=== PATIENT | male | born 1940 | race Caucasian/White ===

== ENCOUNTER 2020-02-18 15:11 | Emergency (ER) | payer OTHER ==
[2020-02-18] MEDS ORDERED: ASPIRIN 81 MG CHEWABLE TABLET ONE (15:48)
[2020-02-18 15:56] LABS: Absolute Lymphocytes (CBC) 1.5 K/uL (0.7-4.9); Basophils % 0.6 % (0-1.3); Hematocrit 41.7 % (39.6-49.0); MPV 9.2 fL (7.6-11.3); RBC Red Blood Cell Count 4.43 M/uL (4.33-5.43)
[2020-02-18 15:57] LABS: Protime INR 1.23
[2020-02-18 16:18] LABS: ALT/SGPT 24 U/L (12-78); AST/SGOT 19 U/L (15-37); Albumin 3.8 g/dL (3.4-5.0); Alkaline Phosphatase 86 U/L (45-117); BUN Blood Urea Nitrogen 16 mg/dL (7-18); Bicarbonate 24 mmol/L (21-32); Bilirubin Direct 0.2 mg/dL (0-0.2); Bilirubin Total 0.7 mg/dL (0.2-1.0); Glucose Level 152 mg/dL (74-106); Potassium 4.2 mmol/L (3.5-5.1); Protein, Total 7.2 g/dL (6.4-8.2); Sodium Level 139 mmol/L (136-145); Troponin (Emerg Dept Use Only) < 0.02 ng/mL (0.0-0.045)
--- NOTE | 2020-02-18 16:38 | ER ---
Nurse's Notes [facility] Name: Antonio Castillo Jr Age: 79 yrs Sex: Male : 1940 Arrival Date: 02/18/2020 Time: 15:12 Bed 4 Private MD: Abdiel Barrett V Diagnosis: Hypertensive heart disease Presentation: 02/17 15:16 Chief complaint: Patient states: "We got into a huge argument today, and with my BP ca1 just shoots up and I got excited so I took Alprazolam 2 hrs ago. But I have A-fib and I just want to make sure that everything is okay. I am not having any pains right now and I have no numbness. But from time to time I feel a little pain on the upper L side of my chest". Coronavirus screen: Proceed with normal triage. Patient denies a cough. Patient denies shortness of breath or difficulty breathing. Patient denies measured and/or subjective temperature greater than 100.4F prior to today's visit. Patient denies travel on a cruise ship or to a country the [facility] currently lists as an affected area. Patient denies contact with known and/or suspected case of COVID-19. Ebola Screen: Patient negative for fever greater than or equal to 101.5 degrees Fahrenheit, and additional compatible Ebola Virus Disease symptoms Patient denies exposure to infectious person. Patient denies travel to an Ebola-affected area in the 21 days before illness onset. No symptoms or risks identified at this time. Initial Sepsis Screen: Does the patient meet any 2 criteria? No. Patient's initial sepsis screen is negative. Does the patient have a suspected source of infection? No. Patient's initial sepsis screen is negative. Risk Assessment: Do you want to hurt yourself or someone else? Patient reports no desire to harm self or others. Onset of symptoms was February 18, 2020. 15:16 Method Of Arrival: Ambulatory ca1 15:16 Acuity: KULWINDER 3 ca1 Historical: - Allergies: 15:22 No Known Allergies; ca1 - Home Meds: 15:22 alprazolam 0.5 mg Oral tab 1 tab as needed [Active]; olmesartan 20 mg daily Oral ca1 [Active]; sotalol 120 mg Oral tab 1 tab 2 times per day [Active]; olmesartan oral 20 mg oral [Active]; meclizine 25 mg Oral tab as needed [Active]; prednisone 10 mg Oral tab as needed [Active]; Nexium Oral as needed [Active]; tumeric [Active]; Cholest Off Plus oral oral [Active]; Xarelto 20 mg Oral tab 1 tab once daily [Active]; Claritin Oral [Active]; - PMHx: 15:22 Atrial Fib; Hypertension; sebaceous cyst removal; cardioversion; ca1 - PSHx: 15:22 Ablation-Jun, 2007; Lithotripsy; Tonsillectomy; ca1 - Immunization history:: Adult Immunizations up to date, Pneumococcal vaccine is up to date, Flu vaccine is up to date. - Social history:: Smoking status: Patient denies any tobacco usage or history of. Screenin:30 Abuse screen: Denies threats or abuse. Nutritional screening: No deficits noted. aa5 Tuberculosis screening: No symptoms or risk factors identified. Fall Risk None identified. Assessment: 15:30 General: Appears comfortable, Behavior is calm, cooperative. Pain: Denies pain. Neuro: aa5 Level of Consciousness is awake, alert, obeys commands, Oriented to person, place, time, situation. Cardiovascular: Heart tones S1 S2 present Rhythm is sinus rhythm. Respiratory: Airway is patent Respiratory effort is even, unlabored, Respiratory pattern is regular, symmetrical. GI: Abdomen is round non-distended, Abd is soft and non tender X 4 quads. : No signs and/or symptoms were reported regarding the genitourinary system. EENT: No signs and/or symptoms were reported regarding the EENT system. Derm: Skin is pink, warm \\T\\ dry. Musculoskeletal: Range of motion: intact in all extremities. 15:48 Reassessment: Patient is alert, oriented x 3, equal unlabored respirations, skin aa5 warm/dry/pink. Pt notified of wait time for lab results. . 16:16 Reassessment: Patient appears in no apparent distress at this time. Patient and/or iw family updated on plan of care and expected duration. Pain level reassessed. Patient is alert, oriented x 3, equal unlabored respirations, skin warm/dry/pink. Patient states feeling better. Patient states symptoms have improved. 16:40 Reassessment: Patient is alert, oriented x 3, equal unlabored respirations, skin aa5 warm/dry/pink. Vital Signs: 15:16 BP 147 / 96; Pulse 85; Resp 15 S; Temp 97.2(TE); Pulse Ox 100% on R/A; Weight 97.52 kg ca1 (R); Height 6 ft. 0 in. (182.88 cm) (R); Pain 0/10; 15:48 BP 156 / 78; Pulse 81; Resp 14 S; Pulse Ox 100% on R/A; aa5 16:16 BP 143 / 75; Pulse 64; Resp 16; Pulse Ox 98% on R/A; iw 16:40 BP 156 / 82; Pulse 72; Resp 18 S; Pulse Ox 98% on R/A; aa5 15:16 Body Mass Index 29.16 (97.52 kg, 182.88 cm) ca1 ED Course: 15:12 Patient arrived in ED. as 15:12 Abdiel Barrett MD is Private Physician. as 15:20 Triage completed. ca1 15:22 Arm band placed on right wrist. ca1 15:24 Franky Carpenter PA is PHCP. cp 15:24 Nery Rodriguez MD is Attending Physician. cp 15:25 Leydi Holguin, JARAD is Primary Nurse. aa5 15:30 Patient has correct armband on for positive identification. Bed in low position. Call aa5 light in reach. Side rails up X2. teletypesetter monitor on. Pulse ox on. NIBP on. 15:44 Initial lab(s) drawn, by ED staff, sent to lab. Inserted saline lock: 20 gauge in right aa5 antecubital area, using aseptic technique. Blood collected. Inserted by GILMAR Mccollum. 15:46 EKG done, by ED staff, reviewed by Nery Rodriguez MD. aa5 16:50 No provider procedures requiring assistance completed. IV discontinued, intact, aa5 bleeding controlled, No redness/swelling at site. Pressure dressing applied. Administered Medications: 15:43 Drug: Aspirin Chewable Tablet 81 mg Route: PO; aa5 16:50 Follow up: Response: No adverse reaction aa5 Outcome: 16:37 Discharge ordered by . cp 16:53 Discharged to home ambulatory. aa5 16:53 Condition: stable 16:53 Discharge instructions given to patient, Instructed on discharge instructions, follow up and referral plans. Demonstrated understanding of instructions, follow-up care. 16:56 Patient left the ED. iw Signatures: Mercedes Mir Irene, RN RN Leydi Downey, RN RN aa5 Franky Carpenter PA PA cp Acob, Cheryl RN RN ca1
--- NOTE | 2020-02-18 16:38 | EDPHYS ---
Physician Documentation [facility] Name: Antonio Castillo Jr Age: 79 yrs Sex: Male : 1940 Arrival Date: 02/18/2020 Time: 15:12 Bed 4 Private MD: Abdiel Barrett V ED Physician Nery Rodriguez HPI: 02/17 15:30 This 79 yrs old Male presents to ER via Ambulatory with complaints of High cp Blood Pressure. 15:30 The patient has elevated blood pressure and discovered this at home, with a home device.cp 15:30 Onset: The symptoms/episode began/occurred this morning. cp 15:30 Associated signs and symptoms: Pertinent negatives: headache, lightheadedness, visual cp changes, vomiting, weakness. Severity of symptoms: At its worst the blood pressure was 200 mm Hg, in the emergency department the blood pressure is improved, markedly. Patient reports noticing elevated blood pressure reading this morning. Admits that elevated readings were measured after being involved in argument with and daughter. Patient reports mild chest discomfort this morning left side of chest. Denies any current pain. Historical: - Allergies: 15:22 No Known Allergies; ca1 - Home Meds: 15:22 alprazolam 0.5 mg Oral tab 1 tab as needed [Active]; olmesartan 20 mg daily Oral ca1 [Active]; sotalol 120 mg Oral tab 1 tab 2 times per day [Active]; olmesartan oral 20 mg oral [Active]; meclizine 25 mg Oral tab as needed [Active]; prednisone 10 mg Oral tab as needed [Active]; Nexium Oral as needed [Active]; tumeric [Active]; Cholest Off Plus oral oral [Active]; Xarelto 20 mg Oral tab 1 tab once daily [Active]; Claritin Oral [Active]; - PMHx: 15:22 Atrial Fib; Hypertension; sebaceous cyst removal; cardioversion; ca1 - PSHx: 15:22 Ablation-Jun, 2007; Lithotripsy; Tonsillectomy; ca1 - Immunization history:: Adult Immunizations up to date, Pneumococcal vaccine is up to date, Flu vaccine is up to date. - Social history:: Smoking status: Patient denies any tobacco usage or history of. ROS: 15:33 Eyes: Negative for injury, pain, redness, and discharge. cp 15:33 Constitutional: Negative for body aches, chills, fever, poor PO intake. 15:33 ENT: Negative for ear pain, sore throat, difficulty swallowing, difficulty handling secretions. 15:33 Cardiovascular: Negative for chest pain, edema, palpitations. 15:33 Respiratory: Negative for cough, shortness of breath, wheezing. 15:33 Abdomen/GI: Negative for abdominal pain, nausea, vomiting, and diarrhea. 15:33 Back: Negative for pain at rest, pain with movement, radiated pain. 15:33 Skin: Negative for rash. 15:33 Neuro: Negative for altered mental status, dizziness, headache, syncope, weakness. 15:33 All other systems are negative. Exam: 15:36 Head/Face: Normocephalic, atraumatic. cp 15:36 Constitutional: The patient appears in no acute distress, alert, awake, comfortable, non-diaphoretic, non-toxic, well developed, well nourished. 15:36 Eyes: Periorbital structures: appear normal, Conjunctiva: normal, no exudate, no injection, Sclera: no appreciated abnormality, Lids and lashes: appear normal, bilaterally. 15:36 ENT: External ear(s): are unremarkable, Nose: is normal, Mouth: is normal, Posterior pharynx: Airway: no evidence of obstruction, patent. 15:36 Neck: ROM/movement: is normal, is supple, without pain, no range of motions limitations, no nuchal rigidity. 15:36 Chest/axilla: Inspection: normal, Palpation: is normal, no crepitus, no tenderness. 15:36 Cardiovascular: Rate: normal, Edema: is not appreciated, JVD: is not appreciated. 15:36 Respiratory: the patient does not display signs of respiratory distress, Respirations: normal, no use of accessory muscles, no retractions, labored breathing, is not present, Breath sounds: are clear throughout, no decreased breath sounds, no stridor, no wheezing. 15:36 Abdomen/GI: Inspection: abdomen appears normal, Bowel sounds: active, all quadrants, Palpation: abdomen is soft and non-tender, in all quadrants, rebound tenderness, is not appreciated, voluntary guarding, is not appreciated, involuntary guarding, is not appreciated. 15:36 Back: pain, is absent, ROM is normal. 15:59 ECG was reviewed by the Attending Physician. cp Vital Signs: 15:16 BP 147 / 96; Pulse 85; Resp 15 S; Temp 97.2(TE); Pulse Ox 100% on R/A; Weight 97.52 kg ca1 (R); Height 6 ft. 0 in. (182.88 cm) (R); Pain 0/10; 15:48 BP 156 / 78; Pulse 81; Resp 14 S; Pulse Ox 100% on R/A; aa5 16:16 BP 143 / 75; Pulse 64; Resp 16; Pulse Ox 98% on R/A; iw 16:40 BP 156 / 82; Pulse 72; Resp 18 S; Pulse Ox 98% on R/A; aa5 15:16 Body Mass Index 29.16 (97.52 kg, 182.88 cm) ca1 MDM: 15:32 Patient medically screened. cp 16:00 Differential diagnosis: hypertensive crisis, Malignant HTN, acute SD. cp 16:35 Data reviewed: vital signs, nurses notes, lab test result(s), EKG, radiologic studies, cp and as a result, I will discharge patient. 16:35 Test interpretation: by ED physician or midlevel provider: ECG. cp 16:35 Counseling: I had a detailed discussion with the patient and/or guardian regarding: the cp historical points, exam findings, and any diagnostic results supporting the discharge/admit diagnosis, the presence of at least one elevated blood pressure reading (>120/80) during this emergency department visit, lab results, the need for outpatient follow up, an hospital pharmacy director, to return to the emergency department if symptoms worsen or persist or if there are any questions or concerns that arise at home. Response to treatment: the patient's symptoms have markedly improved after treatment, and as a result, I will discharge patient. 02/17 15:32 Order name: Basic Metabolic Panel; Complete Time: 16:21 cp 02/17 16:21 Interpretation: Normal except: GLUC 152; GFR 80. cp 02/17 15:32 Order name: CBC with Diff; Complete Time: 16:18 cp 02/17 16:21 Interpretation: Reviewed. 02/17 15:32 Order name: LFT's; Complete Time: 16:21 cp 02/17 16:21 Interpretation: Reviewed. 02/17 15:32 Order name: PT-INR; Complete Time: 16:18 02/17 16:18 Interpretation: Reviewed. 02/17 15:32 Order name: Troponin (emerg Dept Use Only); Complete Time: 16:21 02/17 16:21 Interpretation: Reviewed. 02/17 15:32 Order name: EKG; Complete Time: 15:33 02/17 15:32 Order name: Cardiac monitoring; Complete Time: 15:54 02/17 15:32 Order name: EKG - Nurse/Tech; Complete Time: 15:54 02/17 15:32 Order name: IV Saline Lock; Complete Time: 15:54 02/17 15:32 Order name: Labs collected and sent; Complete Time: 15:54 02/17 15:32 Order name: O2 Per Protocol; Complete Time: 15:54 02/17 15:32 Order name: O2 Sat Monitoring; Complete Time: 15:54 cp EC:59 Rate is 77 beats/min. Rhythm is regular. DE interval is normal. QRS interval is normal. cp QT interval is normal. T waves are Inverted in lead III. Interpreted by me. Reviewed by me. Administered Medications: 15:43 Drug: Aspirin Chewable Tablet 81 mg Route: PO; aa5 16:50 Follow up: Response: No adverse reaction aa5 Disposition: 18:47 Co-signature as Attending Physician, Nery Rodriguez MD. ma2 Disposition: 02/18/20 16:37 Discharged to Home. Impression: Hypertensive heart disease. - Condition is Stable. - Discharge Instructions: Hypertension, How to Take Your Blood Pressure, Rioh-dr-Pcoh, Managing Your Hypertension. - Medication Reconciliation Form, Thank You Letter, Antibiotic Education, Prescription Opioid Use form. - Follow up: Private Physician; When: 2 - 3 days; Reason: Worsening of condition. - Problem is chronic. - Symptoms have improved. Signatures: Dispatcher [employer] Alexa De La O RN RN iw Leydi Holguin RN RN aa5 Franky Carpenter PA PA cp Alzahri, Mohammad, MD MD ma2 Samantha Buck RN RN ca1 Corrections: (The following items were deleted from the chart) 16:56 16:37 02/18/2020 16:37 Discharged to Home. Impression: Hypertensive heart disease. iw Condition is Stable. Forms are Medication Reconciliation Form, Thank You Letter, Antibiotic Education, Prescription Opioid Use. Follow up: Private Physician; When: 2 - 3 days; Reason: Worsening of condition. Problem is chronic. Symptoms have improved. cp
[2020-02-18 17:02] VITALS: TEMP 97.2
[2020-02-18 17:04] VITALS: BP 143/75; O2SAT 98
== END 2020-02-18 16:56 | disposition home or self-care (01) ==
LOC: ER 15:11
DX: I11.9 Hypertensive heart disease without heart failure (principal)
CPT/HCPCS: 36415; 80048; 80076; 84484; 85025; 85610; 93005; 99284

== ENCOUNTER 2020-06-11 02:26 | Emergency (ER) | payer OTHER ==
[2020-06-11] MEDS ORDERED: FAMOTIDINE 20 MG/2 ML VIAL IV ONE (03:39)
[2020-06-11] MEDS ORDERED: MORPHINE 4 MG/ML SYR ONE (03:39)
[2020-06-11] MEDS ORDERED: ONDANSETRON 4 MG/2 ML VIAL ONE (03:39)
[2020-06-11 03:40] LABS: Absolute Lymphocytes (CBC) 1.6 K/uL (0.7-4.9); Basophils % 0.6 % (0-1.3); Hematocrit 41.5 % (39.6-49.0); Lymphocytes % 30.2 % (15.3-44.8); RBC Red Blood Cell Count 4.38 M/uL (4.33-5.43)
[2020-06-11 04:01] LABS: ALT/SGPT 26 U/L (12-78); AST/SGOT 14 U/L (15-37); Albumin 3.7 g/dL (3.4-5.0); Alkaline Phosphatase 84 U/L (45-117); BUN Blood Urea Nitrogen 13 mg/dL (7-18); Bicarbonate 29 mmol/L (21-32); Bilirubin Direct 0.2 mg/dL (0-0.2); Bilirubin Total 0.7 mg/dL (0.2-1.0); Glucose Level 112 mg/dL (74-106); Lipase 98 U/L (73-393); Potassium 3.9 mmol/L (3.5-5.1); Protein, Total 7.2 g/dL (6.4-8.2); Sodium Level 143 mmol/L (136-145); Troponin (Emerg Dept Use Only) < 0.02 ng/mL (0.0-0.045)
[2020-06-11 04:17] LABS: Protime INR 1.73
[2020-06-11] MEDS ORDERED: LORazepam 2 MG/ML VIAL ONE (04:18)
--- NOTE | 2020-06-11 07:48 | RAD REPORT ---
EXAM DESCRIPTION: CTAbdomen Pelvis W Contrast - 06/11/2020 6:53 am CLINICAL HISTORY: Abdominal pain. ABD PAIN COMPARISON: No comparisons TECHNIQUE: Biphasic CT imaging of the abdomen and pelvis was performed with 100 ml non-ionic IV cont rast. All CT scans are performed using dose optimization technique as appropriate and may include automated exposure control or mA/KV adjustment according to patient size. FINDINGS: The lung bases are clear. The liver, spleen, pancreas, adrenal glands and kidneys are within normal limits. 3 cm benign right r enal cyst. No bowel obstruction, free air, free fluid or abscess. Moderate retained stool throughout the colon. Several sigmoid diverticula are present. The appendix is normal. Small fat containing umbilical herni a. No evidence of significant lymphadenopathy. Moderate lumbar degenerative changes. IMPRESSION: Moderate retained stool throughout the colon.
--- NOTE | 2020-06-11 08:05 | EDPHYS ---
Physician Documentation [facility] Name: Antonio Castillo Jr Age: 79 yrs Sex: Male : 1940 Arrival Date: 06/11/2020 Time: 02:30 Bed 6 Private MD: ED Physician Franky Martinez HPI: 06/11 03:59 This 79 yrs old Male presents to ER via Ambulatory with complaints of Gastric mh7 Problems, Abdominal Pain. 03:59 The patient presents with abdominal pain in the upper abdomen. Onset: The mh7 symptoms/episode began/occurred last night. The symptoms do not radiate. 03:59 Associated signs and symptoms: Pertinent positives: shortness of breath, Pertinent mh7 negatives: nausea, vomiting, and diarrhea, anorexia, blood in stools, chest pain, constipation, diarrhea, dysuria, fever, headache, hematuria, nausea, palpitations, testicular pain, vomiting, vomiting blood. The symptoms are described as intermittent, vague, waxing/waning. Modifying factors: The symptoms are alleviated by nothing, the symptoms are aggravated by nothing. Severity of pain: At its worst the pain was moderate today, in the emergency department the pain has improved moderately. The patient has experienced similar episodes in the past, multiple times. Historical: - Allergies: 02:56 No Known Allergies; lp1 - Home Meds: 02:56 olmesartan 20 mg Oral once daily [Active]; Xarelto 20 mg Oral tab 1 tab once daily lp1 [Active]; sotalol 120 mg Oral tab 1 tab 2 times per day [Active]; tamsulosin 0.4 mg oral cp24 1 cap once daily [Active]; finasteride 5 mg oral tab 1 tab once daily [Active]; esomeprazole magnesium 40 mg oral cpDR 1 cap once daily [Active]; alprazolam 0.5 mg Oral tab 1 tab as needed [Active]; meclizine 25 mg Oral tab as needed [Active]; prednisone 10 mg Oral tab as needed [Active]; - PMHx: 02:56 Atrial Fib; cardioversion; Hypertension; sebaceous cyst removal; lp1 - PSHx: 02:56 Cardiac ablasion; Tonsillectomy; lp1 - Immunization history:: Adult Immunizations up to date. - Social history:: Smoking status: Patient denies any tobacco usage or history of. ROS: 03:59 Constitutional: Negative for fever, chills, and weight loss, Eyes: Negative for injury, mh7 pain, redness, and discharge, ENT: Negative for injury, pain, and discharge, Neck: Negative for injury, pain, and swelling, Cardiovascular: Negative for chest pain, palpitations, and edema, Back: Negative for injury and pain, : Negative for injury, bleeding, discharge, and swelling, MS/Extremity: Negative for injury and deformity, Skin: Negative for injury, rash, and discoloration, Neuro: Negative for headache, weakness, numbness, tingling, and seizure, Psych: Negative for depression, anxiety, suicide ideation, homicidal ideation, and hallucinations, Allergy/Immunology: Negative for hives, rash, and allergies, Endocrine: Negative for neck swelling, polydipsia, polyuria, polyphagia, and marked weight changes, Hematologic/Lymphatic: Negative for swollen nodes, abnormal bleeding, and unusual bruising. Exam: 03:59 Head/Face: Normocephalic, atraumatic. Eyes: Pupils equal round and reactive to light, mh7 extra-ocular motions intact. Lids and lashes normal. Conjunctiva and sclera are non-icteric and not injected. Cornea within normal limits. Periorbital areas with no swelling, redness, or edema. Neck: Trachea midline, no thyromegaly or masses palpated, and no cervical lymphadenopathy. Supple, full range of motion without nuchal rigidity, or vertebral point tenderness. No Meningismus. Chest/axilla: Normal chest wall appearance and motion. Nontender with no deformity. No lesions are appreciated. Cardiovascular: Regular rate and rhythm with a normal S1 and S2. No gallops, murmurs, or rubs. Normal PMI, no JVD. No pulse deficits. Respiratory: Lungs have equal breath sounds bilaterally, clear to auscultation and percussion. No rales, rhonchi or wheezes noted. No increased work of breathing, no retractions or nasal flaring. 03:59 Back: No spinal tenderness. No costovertebral tenderness. Full range of motion. Skin: Warm, dry with normal turgor. Normal color with no rashes, no lesions, and no evidence of cellulitis. MS/ Extremity: Pulses equal, no cyanosis. Neurovascular intact. Full, normal range of motion. Neuro: Awake and alert, GCS 15, oriented to person, place, time, and situation. Cranial nerves II-XII grossly intact. Motor strength 5/5 in all extremities. Sensory grossly intact. Cerebellar exam normal. Normal gait. Psych: Awake, alert, with orientation to person, place and time. Behavior, mood, and affect are within normal limits. 03:59 Constitutional: The patient appears in no acute distress, alert, awake, uncomfortable. 03:59 Abdomen/GI: Inspection: abdomen appears normal, obese Bowel sounds: normal, in all quadrants, Palpation: moderate abdominal tenderness, in the epigastric area and umbilical area, Rectal exam: the exam is deferred, because of patient request, Indicators: McBurney's point is not tender, Kwon's sign is negative, Rovsing's sign is negative, Obturator sign is negative, Psoas sign is negative, Liver: no appreciated palpable abnormalities, Hernia: not appreciated. 06:00 ECG was reviewed by the Attending Physician. [facility] Vital Signs: 02:49 BP 181 / 75; Pulse 61; Resp 18; Temp 98.6(TE); Pulse Ox 100% on R/A; Weight 96.62 kg lp1 (R); Height 6 ft. 0 in. (182.88 cm); Pain 0/10; 04:37 BP 137 / 70; Pulse 58; Resp 15; Pulse Ox 96% on R/A; rv 06:00 BP 132 / 61; Pulse 60; Resp 16; Pulse Ox 98% ; rr5 07:05 BP 152 / 70; Pulse 60; Resp 17; Pulse Ox 99% ; jl7 08:20 BP 150 / 67; Pulse 58; Resp 17; Pulse Ox 100% ; jl7 02:49 Body Mass Index 28.89 (96.62 kg, 182.88 cm) lp1 MDM: 03:08 Patient medically screened. [facility] 08:03 Differential diagnosis: AAA, bowel obstruction, diverticulitis, gastritis, Hepatitis, charmaine non-specific abd pain, Peptic Ulcer Disease, Peritonitis. Data reviewed: vital signs, nurses notes, lab test result(s), EKG, radiologic studies, CT scan. Data interpreted: bus driver/monitor: rate is 60 beats/min, rhythm is regular, Pulse oximetry: on room air is 99 %. Test interpretation: by ED physician or midlevel provider: ECG. Counseling: I had a detailed discussion with the patient and/or guardian regarding: the historical points, exam findings, and any diagnostic results supporting the discharge/admit diagnosis, lab results, radiology results, the need for outpatient follow up, for definitive care, a branch banker, an deputy sheriff. 06/11 03:10 Order name: Basic Metabolic Panel; Complete Time: 04:40 mh7 06/11 03:10 Order name: CBC with Diff; Complete Time: 03:51 mh7 06/11 03:10 Order name: Hepatic Function; Complete Time: 04:40 mh7 06/11 03:10 Order name: Lipase; Complete Time: 04:40 mh7 06/11 03:10 Order name: Troponin (emerg Dept Use Only); Complete Time: 04:40 mh7 06/11 03:52 Order name: Protime (+inr); Complete Time: 04:40 mh7 06/11 03:52 Order name: Ptt, Activated; Complete Time: 04:40 mh7 06/11 03:55 Order name: PROBNP; Complete Time: 04:40 mh7 06/11 03:58 Order name: Chest Single View XRAY 06/11 04:42 Order name: CT Abd/Pelvis - PO and IV Contrast; Complete Time: 08:02 mh7 06/11 03:10 Order name: IV Saline Lock; Complete Time: 03:30 mh7 06/11 03:10 Order name: Labs collected and sent; Complete Time: 03:43 mh7 06/11 03:10 Order name: EKG - Nurse/Tech; Complete Time: 03:30 mh7 06/11 03:10 Order name: Urine Dipstick-Ancillary (obtain specimen); Complete Time: 03:30 mh7 EC:00 Rate is 59 beats/min. Rhythm is regular, Sinus bradycardia. QRS Blossom is Normal. AR mh7 interval is normal. QRS interval is normal. QT interval is normal. No Q waves. T waves are Normal. No ST changes noted. Clinical impression: Sinus bradycardia. Administered Medications: 03:31 Drug: Zofran (Ondansetron) 4 mg Route: IVP; Site: right antecubital; rv 04:30 Follow up: Response: No adverse reaction rr5 03:31 Drug: Pepcid 20 mg Route: IVP; Site: right antecubital; rv 04:30 Follow up: Response: No adverse reaction rr5 04:08 Not Given (Patient Refused): morphine 4 mg IVP once; RASS on ADMIN: Combtv4, Very rv Agttd3, Agttd2, Rstlss1, AlertClm0, Drwsy-1, Lt Sdtn-2, Mod Sdtn-3, Dp Sdtn-4, UnArsble-5 04:09 Drug: Ativan 0.5 mg Route: IVP; Site: right antecubital; rv 05:00 Follow up: Response: No adverse reaction; Marked relief of symptoms rr5 08:15 Drug: Lactulose 30 grams Volume: 45 ml; Route: PO; jl7 08:31 Follow up: Response: Medication administered at discharge. jl7 Disposition: 06/11/20 08:05 Discharged to Home. Impression: Abdominal tenderness, Constipation. - Condition is Stable. - Discharge Instructions: Abdominal Pain, Adult, Constipation, Adult, Abdominal Pain, Adult, Boij-uv-Zlno. - Prescriptions for Bentyl 20 mg Oral Tablet - take 1 tablet by ORAL route every 6 hours As needed; 20 tablet. Dulcolax 10 mg Rectal Suppository - insert 1 suppository by RECTAL route every 12 hours As needed; 10 suppository. Miralax 17 gram/dose Oral - take 1 packet by ORAL route once daily dilute powder in 8 ounces of water or juice; 14 packet. Protonix 40 mg Oral Tablet, Delayed Release (E.C.) - take 1 tablet by ORAL route once daily; 14 tablet. - Medication Reconciliation Form, Thank You Letter, Antibiotic Education, Prescription Opioid Use form. - Follow up: Private Physician; When: 2 - 3 days; Reason: Recheck today's complaints, Continuance of care, Re-evaluation by your physician. Follow up: Ángel Reddy MD; When: 2 - 3 days; Reason: Recheck today's complaints, Re-evaluation by your physician. Follow up: Antonio Mendez MD; When: 2 - 3 days; Reason: Recheck today's complaints, Re-evaluation by your physician. Follow up: Sandor Gan MD; When: 2 - 3 days; Reason: Recheck today's complaints, Continuance of care, Re-evaluation by your physician. - Problem is new. - Symptoms have improved. Signatures: Dispatcher [employer] EDMS Franky Martinez MD MD cha Pena, Laura RN RN lp1 Liliana Hugo RN RN jl7 Georgi Tate, JARAD RN Isma Patricia MD MD 7 Dejon Duran RN rr5 Corrections: (The following items were deleted from the chart) 08:21 08:05 06/11/2020 08:05 Discharged to Home. Impression: Abdominal tenderness; charmaine Constipation. Condition is Stable. Forms are Medication Reconciliation Form, Thank You Letter, Antibiotic Education, Prescription Opioid Use. Follow up: Private Physician; When: 2 - 3 days; Reason: Recheck today's complaints, Continuance of care, Re-evaluation by your physician. Follow up: Ángel Reddy; When: 2 - 3 days; Reason: Recheck today's complaints, Re-evaluation by your physician. Problem is new. Symptoms have improved. charmaine 08:33 08:21 06/11/2020 08:05 Discharged to Home. Impression: Abdominal tenderness; jl7 Constipation. Condition is Stable. Discharge Instructions: Abdominal Pain, Adult, Constipation, Adult, Abdominal Pain, Adult, Kqon-gj-Ddvd. Prescriptions for Bentyl 20 mg Oral Tablet - take 1 tablet by ORAL route every 6 hours As needed; 20 tablet, Dulcolax 10 mg Rectal Suppository - insert 1 suppository by RECTAL route every 12 hours As needed; 10 suppository, Miralax 17 gram/dose Oral - take 1 packet by ORAL route once daily dilute powder in 8 ounces of water or juice; 14 packet, Protonix 40 mg Oral Tablet, Delayed Release (E.C.) - take 1 tablet by ORAL route once daily; 14 tablet. and Forms are Medication Reconciliation Form, Thank You Letter, Antibiotic Education, Prescription Opioid Use. Follow up: Private Physician; When: 2 - 3 days; Reason: Recheck today's complaints, Continuance of care, Re-evaluation by your physician. Follow up: Antonio Mendez; When: 2 - 3 days; Reason: Recheck today's complaints, Re-evaluation by your physician. Follow up: Sandor Gan; When: 2 - 3 days; Reason: Recheck today's complaints, Continuance of care, Re-evaluation by your physician. Problem is new. Symptoms have improved. charmaine
--- NOTE | 2020-06-11 08:05 | ER ---
Nurse's Notes [facility] Name: Antonio Castillo Jr Age: 79 yrs Sex: Male : 1940 Arrival Date: 06/11/2020 Time: 02:30 Bed 6 Private MD: Diagnosis: Abdominal tenderness;Constipation Presentation: 06/11 02:49 Chief complaint: Patient states: Abdominal pressure that began at 0140 this morning; lp1 ongoing abdominal issues since September, seeing GI specialist; States feeling like short of breath with abdominal pressure; denies diarrhea, constipation. Coronavirus screen: Client denies travel out of the [place] in the last 14 days. At this time, the client does not indicate any symptoms associated with coronavirus-19. Ebola Screen: No symptoms or risks identified at this time. Initial Sepsis Screen: Does the patient meet any 2 criteria? No. Patient's initial sepsis screen is negative. Does the patient have a suspected source of infection? No. Patient's initial sepsis screen is negative. Risk Assessment: Do you want to hurt yourself or someone else? Patient reports no desire to harm self or others. Onset of symptoms was June 11, 2020 at 01:40. 02:49 Method Of Arrival: Ambulatory lp1 02:49 Acuity: KULWINDER 3 lp1 Historical: - Allergies: 02:56 No Known Allergies; lp1 - Home Meds: 02:56 olmesartan 20 mg Oral once daily [Active]; Xarelto 20 mg Oral tab 1 tab once daily lp1 [Active]; sotalol 120 mg Oral tab 1 tab 2 times per day [Active]; tamsulosin 0.4 mg oral cp24 1 cap once daily [Active]; finasteride 5 mg oral tab 1 tab once daily [Active]; esomeprazole magnesium 40 mg oral cpDR 1 cap once daily [Active]; alprazolam 0.5 mg Oral tab 1 tab as needed [Active]; meclizine 25 mg Oral tab as needed [Active]; prednisone 10 mg Oral tab as needed [Active]; - PMHx: 02:56 Atrial Fib; cardioversion; Hypertension; sebaceous cyst removal; lp1 - PSHx: 02:56 Cardiac ablasion; Tonsillectomy; lp1 - Immunization history:: Adult Immunizations up to date. - Social history:: Smoking status: Patient denies any tobacco usage or history of. Screenin:56 Abuse screen: Denies threats or abuse. Denies injuries from another. Nutritional lp1 screening: No deficits noted. Tuberculosis screening: No symptoms or risk factors identified. Fall Risk None identified. Assessment: 03:32 General: Appears comfortable, Behavior is calm, cooperative. Pain: Complains of pain in rv epigastric area Pain currently is 2 out of 10 on a pain scale. Neuro: Level of Consciousness is awake, alert, obeys commands, Oriented to person, place, time, situation. Cardiovascular: Patient's skin is warm and dry. Respiratory: Airway is patent Respiratory effort is even, unlabored, Breath sounds are clear bilaterally. GI: Bowel sounds present X 4 quads. Abd is soft and non tender X 4 quads. Reports bloating. Derm: Skin is intact. 04:54 Reassessment: oral contrast consumed CT staff informed. rr5 06:00 Reassessment: Patient appears in no apparent distress at this time. Patient is alert, rr5 oriented x 3, equal unlabored respirations, skin warm/dry/pink. awaiting for CT procedure. 06:31 Reassessment: Patient appears in no apparent distress at this time. Patient is alert, rr5 oriented x 3, equal unlabored respirations, skin warm/dry/pink. send for CT procedure assisted by CT staff. Vital Signs: 02:49 BP 181 / 75; Pulse 61; Resp 18; Temp 98.6(TE); Pulse Ox 100% on R/A; Weight 96.62 kg lp1 (R); Height 6 ft. 0 in. (182.88 cm); Pain 0/10; 04:37 BP 137 / 70; Pulse 58; Resp 15; Pulse Ox 96% on R/A; rv 06:00 BP 132 / 61; Pulse 60; Resp 16; Pulse Ox 98% ; rr5 07:05 BP 152 / 70; Pulse 60; Resp 17; Pulse Ox 99% ; jl7 08:20 BP 150 / 67; Pulse 58; Resp 17; Pulse Ox 100% ; jl7 02:49 Body Mass Index 28.89 (96.62 kg, 182.88 cm) lp1 ED Course: 02:30 Patient arrived in ED. bp1 02:47 Isma Graham MD is Attending Physician. mh7 02:50 Triage completed. lp1 02:51 Arm band placed on. lp1 03:15 Georgi Tate, RN is Primary Nurse. rv 03:31 Initial lab(s) drawn, by me, sent to lab. Inserted saline lock: 18 gauge in right rv antecubital area, using aseptic technique. Blood collected. 03:32 Patient has correct armband on for positive identification. phone triage specialist on. Pulse rv ox on. NIBP on. 03:43 EKG done, by ED staff, reviewed by Isma Graham MD. rv 04:16 Chest Single View XRAY In Process Unspecified. EDMS 06:19 Attending Physician role handed off by Isma Graham MD charmaine 06:19 Franky Martinez MD is Attending Physician. charmaine 06:54 CT Abd/Pelvis - PO and IV Contrast In Process Unspecified. EDMS 07:07 Primary Nurse role handed off by Georgi Tate RN jl7 07:07 Liliana Hugo, JARAD is Primary Nurse. jl7 08:04 Ángel Reddy MD is Referral Physician. [place] 08:21 Referral Physician role handed off by Ángel Reddy MD charm[place] 08:21 Antonio Mendez MD is Referral Physician. [place] 08:21 Sandor Gan MD is Referral Physician. [place] 08:25 No provider procedures requiring assistance completed. IV discontinued, intact, jl7 bleeding controlled, No redness/swelling at site. Pressure dressing applied. Administered Medications: 03:31 Drug: Zofran (Ondansetron) 4 mg Route: IVP; Site: right antecubital; rv 04:30 Follow up: Response: No adverse reaction rr5 03:31 Drug: Pepcid 20 mg Route: IVP; Site: right antecubital; rv 04:30 Follow up: Response: No adverse reaction rr5 04:08 Not Given (Patient Refused): morphine 4 mg IVP once; RASS on ADMIN: Combtv4, Very rv Agttd3, Agttd2, Rstlss1, AlertClm0, Drwsy-1, Lt Sdtn-2, Mod Sdtn-3, Dp Sdtn-4, UnArsble-5 04:09 Drug: Ativan 0.5 mg Route: IVP; Site: right antecubital; rv 05:00 Follow up: Response: No adverse reaction; Marked relief of symptoms rr5 08:15 Drug: Lactulose 30 grams Volume: 45 ml; Route: PO; jl7 08:31 Follow up: Response: Medication administered at discharge. jl7 Outcome: 08:05 Discharge ordered by . charmaine 08:25 Discharged to home ambulatory. 7 08:25 Condition: stable 08:25 Discharge instructions given to patient, Instructed on discharge instructions, follow up and referral plans. medication usage, Demonstrated understanding of instructions, follow-up care, medications, Prescriptions given X 4. 08:33 Patient left the ED. jl7 Signatures: Dispatcher [employer] EDMS Franky Martinez MD MD cha Pena, Laura, RN RN lp1 Liliana Hugo RN RN jl7 Georgi Tate RN RN rv Roque, Raymond, RN RN rr5 Renate Joseph Maurice, MD MD 7
[2020-06-11] MEDS ORDERED: LACTULOSE 20 GM/30 ML UCUP ONE (08:29)
[2020-06-11 08:40] VITALS: TEMP 98.6
[2020-06-11 08:45] VITALS: BP 150/67; O2SAT 100
--- NOTE | 2020-06-11 11:37 | RAD REPORT ---
EXAM DESCRIPTION: RAD - Chest Single View - 06/11/2020 4:16 am CLINICAL HISTORY: CONGESTION Chest pain. COMPARISON: Chest Single View dated 03/11/2019; CHEST SINGLE VIEW dated 09/08/2014; CHEST SINGLE VIEW da brian 01/23/2014 FINDINGS: Portable technique limits examination quality. The lungs are emphysematous but grossly clear. The heart is upper limit of normal in size. No displac ed fractures. IMPRESSION: Mild COPD.
== END 2020-06-11 08:33 | disposition home or self-care (01) ==
LOC: ER 02:26
DX: K59.00 Constipation, unspecified (principal); I10 Essential (primary) hypertension; I48.91 Unspecified atrial fibrillation; Z79.01 Long term (current) use of anticoagulants
CPT/HCPCS: 85025; 80048; 36415; 85610; 80076; 85730; 84484; 83690; 83880; 74177; 71045; 96375; 96374; 99285; Q9967; J2405

== ENCOUNTER 2020-06-22 06:28 | Day surgery (SDC) | payer OTHER ==
[2020-06-22] MEDS ORDERED: HEPA 1000U/500MLS 1,000 UNIT/500 ML BAG IV ONE (06:53)
[2020-06-22] MEDS ORDERED: LIDOCAINE 1% MPF 30 ML VIAL ONE (06:53)
[2020-06-22] MEDS ORDERED: NA CHLORIDE 0.9% 500 ML ONE (07:03)
[2020-06-22] MEDS ORDERED: MIDAZOLAM HCL 2 MG/2 ML INJ ONE ×2 (07:27→07:44)
[2020-06-22] MEDS ORDERED: ATROPINE SULF 1 MG/10 ML SYR IV ONE (07:28)
[2020-06-22] MEDS ORDERED: FENTANYL CITR 100 MCG/2 ML ONE (07:28)
[2020-06-22] MEDS ORDERED: NA CHLORIDE 0.9% 50 ML ONE (07:28)
[2020-06-22] MEDS ORDERED: PRASUGREL (EFFIENT) 10 MG TAB ONE (08:10)
[2020-06-22] MEDS ORDERED: NITROGLYCERIN/D5W 25 MG/250 ML BTL IV ONE (08:10)
[2020-06-22] MEDS ORDERED: NITROGLYCERIN 100 MCG/ML SYR (for cath lab use only) IV ONE (08:10)
[2020-06-22] MEDS ORDERED: ASPIRIN 325 MG TAB ONE (09:14)
--- NOTE | 2020-06-22 09:30 | OP ---
Date of Procedure: 06/22/2020 Surgeon: Sandor Gan MD Airborne And Air Delivery Specialist: Claudia Almeida. StarClose was used to close the case since we will plan to come back in 2 weeks. When we do come vel k, I believe a 3DRC guide will be better for the RCA intervention. The patient will stay overnight. He will go home tomorrow on his home medications plus Plavix, no aspirin. Procedure: Left heart catheterization, selective coronary arteriogram, and primary stent of the dist al left anterior descending artery and mid left anterior descending artery. Indications: Coronary artery disease, unstable angina, positive stress test. Mr. Castillo is a 80-year- old white male with history of CAD in the past, hypertension, dyslipidemia, atrial fibrillation, had been taking sotalol and Xarelto, and has been in sinus rhythm. His Xarelto was held for 48 hours alfreda or to the procedure. He had come in with chest pain and a positive stress test in the tag and label cutter today . Description Of Procedure: He was prepped and draped in a routine sterile fashion. A 6-Spanish sheath was introduced in the right common femoral artery using the Seldinger technique after 10 cc of xyloc daniel. He was given Versed for sedative. Uri catheter left and right were used to cannulate the left main and right main respectively. He was found to have a normal right and normal left main, nor mal circumflex that was nondominant. He had a severe stenosis in the distal LAD, about 95%. He had a 70% mid LAD stenosis. His RCA had a 70% mid RCA stenosis. He was very right dominant. We elected to do a staged intervention of the LAD today and the RCA later. An XB LAD 4.0 side hole had to be u sed to cannulate the left main. A [place] wire was used to cross the LAD successfully. Initially, we introduced a 2.5 x 16 Synergy stent into the distal LAD and we dilated up to 15 atmosphere. We did the angiography after that and the lesion appeared perfect without any thrombosis with 0% residual. Following that, we introduced a 3.5 x 16 stent in the mid LAD just after the first septal and first d iagonal. We inflated that up to 11 atmosphere and 0% residual was noted in both blood vessels. Intr acoronary nitroglycerin was used prior to each stent and after each stent. We had no complications. Blood Loss: 5 mL. Anesthesia: Total conscious sedation was 60 minutes. The patient received Angiomax, aspirin, and Effient during and after the procedure. Postoperative Diagnosis: Coronary artery disease, status post primary stent of the mid and distal le ft anterior descending artery. He will need an RCA stent that we will stage and do in couple of weeks. RITA/LIBORIO Voice ID: [id number] Report ID: [id number]
[2020-06-22] MEDS ORDERED: NITROGLYCERIN 0.4 MG/TAB SL PRN (10:00)
[2020-06-22] MEDS ORDERED: NA CHLORIDE 0.9% 1,000 ML IV SCH (10:00)
[2020-06-22] MEDS ORDERED: ACETAMINOPHEN 325 MG TABLET PO PRN (10:00)
[2020-06-22] MEDS ORDERED: NA CHLORIDE 0.9% 1,000 ML ONE (10:10)
[2020-06-22 10:26] VITALS: O2SAT 100
[2020-06-22] MEDS ORDERED: ONDANSETRON 4 MG/2 ML VIAL IV PRN (10:37)
[2020-06-22] MEDS ORDERED: MORPHINE 4 MG/ML SYR IV PRN (10:38)
[2020-06-22 12:03] VITALS: BMI 28.6
[2020-06-22] MEDS ORDERED: ALPRAZOLAM 0.5 MG TABLET PO PRN (19:42)
[2020-06-22] MEDS: SOTALOL HCL 80 MG TAB PO SCH ×2 (20:16→20:27)
[2020-06-22] MEDS ORDERED: ATORVASTATIN 80 MG TAB PO SCH (21:00)
[2020-06-23 05:04] VITALS: BP 119/72; TEMP 97
[2020-06-23 05:47] LABS: Absolute Lymphocytes (CBC) 1.6 K/uL (0.7-4.9); Basophils % 0.4 % (0-1.3); Hematocrit 37.5 % (39.6-49.0); Lymphocytes % 27.2 % (15.3-44.8); MPV 10.1 fL (7.6-11.3); RBC Red Blood Cell Count 3.94 M/uL (4.33-5.43)
[2020-06-23] MEDS: SOTALOL HCL 80 MG TAB PO SCH (08:14)
[2020-06-23] MEDS ORDERED: CLOPIDOGREL 75 MG TABLET PO SCH (09:00)
[2020-06-23] MEDS ORDERED: ASPIRIN 81 MG CHEWABLE TABLET PO SCH (09:00)
== END 2020-06-23 08:22 | disposition home or self-care (01) ==
LOC: CCL 06:28 → 2ND 10:07 → CCL 06-23 08:22
DX: I25.110 Atherosclerotic heart disease of native coronary artery with unstable angina pectoris (principal); I10 Essential (primary) hypertension; I48.91 Unspecified atrial fibrillation; E78.5 Hyperlipidemia, unspecified; Z79.01 Long term (current) use of anticoagulants; Z20.828 Contact with and (suspected) exposure to other viral communicable diseases
CPT/HCPCS: 85025; 80048; 36415; 80061; 85347 ×2; 93454; U0002; C1893; C1725; C1877 ×2; C9600; J2250 ×2; J3010; J0583; J7040; J7030; J1644

== ENCOUNTER 2020-07-06 11:41 | Day surgery (SDC) | payer OTHER ==
[2020-07-03 13:19] LABS: Absolute Lymphocytes (CBC) 1.2 K/uL (0.7-4.9); Basophils % 0.6 % (0-1.3); Hematocrit 39.6 % (39.6-49.0); Lymphocytes % 18.5 % (15.3-44.8); MPV 9.1 fL (7.6-11.3); Protime INR 1.1; RBC Red Blood Cell Count 4.26 M/uL (4.33-5.43)
[2020-07-03 13:36] LABS: Potassium 4.2 mmol/L (3.5-5.1)
[~2020-07-06 11:41] MED LIST: ATROPINE SULF 1 MG/10 ML SYR IV ONE; FENTANYL CITR 100 MCG/2 ML ONE; HEPA 1000U/500MLS 1,000 UNIT/500 ML BAG IV ONE; LIDOCAINE 1% 20 ML MDV ONE; MIDAZOLAM HCL 2 MG/2 ML INJ ONE; MIDAZOLAM HCL 5 MG/5 ML INJ ONE; NA CHLORIDE 0.9% 50 ML ONE; NA CHLORIDE 0.9% 500 ML ONE; NITROGLYCERIN 100 MCG/ML SYR (for cath lab use only) IV ONE; NITROGLYCERIN/D5W 25 MG/250 ML BTL IV ONE
[2020-07-06] MEDS ORDERED: PRASUGREL (EFFIENT) 10 MG TAB ONE (11:52)
--- NOTE | 2020-07-06 11:52 | OP ---
Date of Procedure: 07/05/2020 Surgeon: Sandor Gan MD [place] Actor: Claudia Almeida. The patient did receive 60 of Effient right after the procedure. A CT was appropriate. Time: 11:15 a.m. Procedure: Primary stent of the RCA. Indication: Coronary artery disease. This was a staged procedure following an LAD stent last week. Procedure In Detail: Mr. Castillo was brought to the cath lab nurse today as an outpatient, prepped and draped in the routine sterile fashion. A 6-Georgian sheath was introduced in the right common femoral artery successfully using the Seldinger technique and 10 cc of Xylocaine. Angiography there was normal. A ngio-Seal was used to close the case. A JR4 guide catheter was used to cannulate the right main afte r an Angiomax bolus and drip. A [place] wire was used to cross the lesion successfully. The [place] w lanny was 0.014 exchange length. A 3.0 x 16 Synergy stent was placed at 14 atmospheres with 0% residua l. There were no complications. Blood Loss: 5 mL. Postoperative Diagnosis: Coronary artery disease, status post successful primary stent of the RCA. Plan: The plan is to continue medical therapy. He will be on Plavix and Xarelto, and no aspirin for 6 months after which we will switch him to Xarelto and aspirin without Plavix. He will resume his X arelto tomorrow. Anesthesia: Total conscious sedation was 45 minutes. RITA/MODL Voice ID: [id number] Report ID: [id number]
[2020-07-06] MEDS ORDERED: NITROGLYCERIN 0.4 MG/TAB SL PRN (14:00)
[2020-07-06] MEDS ORDERED: MORPHINE 2 MG/ML SYR IV PRN (14:00)
[2020-07-06] MEDS ORDERED: NA CHLORIDE 0.9% 1,000 ML IV SCH (14:00)
[2020-07-06] MEDS ORDERED: ACETAMINOPHEN 325 MG TABLET PO PRN ×2 (14:00)
[2020-07-06 14:56] VITALS: BMI 28.2
[2020-07-06] MEDS ORDERED: ATORVASTATIN 80 MG TAB PO SCH (21:00)
[2020-07-06] MEDS ORDERED: BUSPIRONE HCL 5 MG TABLET PO PRN (22:01)
[2020-07-07] MEDS ORDERED: SOTALOL HCL 80 MG TAB PO SCH (06:00)
[2020-07-07 08:31] VITALS: BP 167/74; TEMP 97.2
[2020-07-07] MEDS ORDERED: VALSARTAN 80 MG TAB PO SCH (09:00)
[2020-07-07] MEDS ORDERED: ASPIRIN 81 MG CHEWABLE TABLET PO SCH (09:00)
[2020-07-07] MEDS ORDERED: CLOPIDOGREL 75 MG TABLET PO SCH (09:00)
[2020-07-07 10:39] VITALS: O2SAT 99
--- NOTE | 2020-07-07 17:23 | PN ---
Hospital Course: Mr. Castillo was admitted as an outpatient on 07/06/2020 for a catheterization and prim demond RCA stent. This was done yesterday as an outpatient successfully via right groin approach. The RCA with an 80% stenosis that was stented with a 3.0 x 16 Synergy stent with 0% residual. There were no complications or blood loss. Overnight, the patient denies any chest pain, shortness of breath, pedal edema, palpitation, or syncope. Physical Examination: Vital Signs: Stable. He was afebrile. He was in a sinus rhythm. Chest: Clear. Extremities: His right groin site is intact without any hematoma. He has good distal pulses in the dorsalis pedis and posterior tibial. Impression And Plan: This is a patient status post stent of the LAD about 2 weeks ago, stent of the RCA now. He is doing very well without any chest pain or angina. He will be going home on his home medications which include aspirin, beta blockers and Plavix, and we will add Lipitor 40 mg daily, latonya will be called in. He can go home today and see me in the office in about 2 weeks. RITA/LIBORIO Voice ID: [id number] Report ID: [id number]
== END 2020-07-07 08:45 | disposition home or self-care (01) ==
LOC: CCL 11:41 → 2ND 12:14 → CCL 07-07 08:45
DX: I25.10 Atherosclerotic heart disease of native coronary artery without angina pectoris (principal); I48.0 Paroxysmal atrial fibrillation; I10 Essential (primary) hypertension; E78.2 Mixed hyperlipidemia; F41.9 Anxiety disorder, unspecified; Z20.828 Contact with and (suspected) exposure to other viral communicable diseases; Z79.01 Long term (current) use of anticoagulants; Z82.49 Family history of ischemic heart disease and other diseases of the circulatory system
CPT/HCPCS: 85025; 80048; 36415; 85610; 85347 ×2; 85730; 92928; U0002; C1893; C1760; C1725; J2250; J3010; J0583; J7040; J1644

== ENCOUNTER 2021-05-08 09:23 | Day surgery (SDC) | payer OTHER ==
--- NOTE | 2021-05-04 11:43 | RAD REPORT ---
EXAM DESCRIPTION: RAD - Chest Pa And Lat (2 Views) - 05/04/2021 10:45 am CLINICAL HISTORY: PRE OP COMPARISON: Chest Single View dated 06/11/2020; Chest Single View dated 03/11/2019; CHEST SINGLE VIEW d ated 09/08/2014; CHEST SINGLE VIEW dated 01/23/2014 FINDINGS: No evidence of edema or pneumonia. The heart size is within normal limits.No acute osseous abnormality. No significant pleural effusions or pneumothorax. IMPRESSION: No acute cardiopulmonary disease. Emphysema.
[2021-05-04 11:44] LABS: Protime INR 1.13
[2021-05-08] MEDS ORDERED: Ringers Lactate 1,000 ML IV ONE (10:28)
[2021-05-08] MEDS ORDERED: CEFAZOLIN/SWI 2gm 2 GM/20 ML SYR ONE (10:29)
[2021-05-08] MEDS ORDERED: PHENAZOPYRIDINE 100MG TAB PO ONE ×2 (12:42→14:31)
[2021-05-08] MEDS ORDERED: CODEINE 30MG/APAP 300MG TAB PO PRN (12:42)
[2021-05-08] MEDS ORDERED: LIDOCAINE 1% MPF 30 ML VIAL ONE (13:08)
[2021-05-08] MEDS ORDERED: Mastisol Adhesive Liq ONE (13:29)
[2021-05-08] MEDS ORDERED: ONDANSETRON 4 MG/2 ML VIAL ONE (14:22)
[2021-05-08] MEDS ORDERED: FENTANYL CITR 100 MCG/2 ML ONE (14:22)
[2021-05-08] MEDS ORDERED: propofoL 200 MG/20 ML VIAL IV ONE (14:22)
[2021-05-08] MEDS ORDERED: CODEINE 30MG/APAP 300MG TAB ONE (15:07)
--- NOTE | 2021-05-08 16:26 | OP ---
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 2.History of gross hematuria. Principal Procedures: 1.Cystoscopy and bladder biopsies with fulguration. 2.Left ureteral stent placement. Indication For Procedure: Mr. Castillo presented to the Urology Clinic with gross hematuria and an upper tract imaging with CT urography completed on 03/19/2021, which revealed only the presence of a 2 mm calculus within the inferior left kidney without hydronephrosis. Upon cystoscopic evaluation, a slig htly papillary lesion was noted around the left ureteral orifice and he was planned for cystoscopic b ladder biopsy with fulguration. Procedure In Detail: The patient was consented in the preoperative holding area before being transfe rred to the operative suite where general anesthesia was induced. He was given Ancef 2 g IV antimicr obial prophylaxis and pneumo boots were provided for DVT prophylaxis. His genitalia were prepped usi ng Hibiclens and draped in standard fashion. Case was begun using a 22-Argentine rigid cystoscope to tr averse the urethra and into the bladder with ease. The bladder was surveyed in its entirety, and whi le it was trabeculated, there were no diverticula or significant cellule formation. Near the left ur eteral orifice, as it previously had been observed, there was an area of papillary lesion, but this t elisa I observed that to be both posterior to the orifice as well as more distal and medial to the orif ice, but yet within millimeters of the opening. I then employed a 70-degree lens to survey the bladd er neck in its entirety, and no additional mucosal lesions were noted. Thus, I returned to a 30-degr ee lens and utilized the cold cup biopsy forceps to remove the tumor from around the ureteral orifice . Three biopsies were taken with care taken to avoid the actual orifice opening. These were sent fo r pathologic analysis. I then employed a Bugbee electrode at a cautery setting of 30 to fulgurate an y bleeding vessels, and with the tissue contraction associated with the fulguration, while the actual orifice itself was still patent, I was concerned about the potential for edema and resultant obstruc tion of the left ureteral orifice. As a result, I then employed a Sensor wire which I passed up the ureter into the putative collecting system. Fluoroscopy was not used in this case. Over the Sensor wire, I then passed a 6-Argentine by 26 cm double-J left ureteral stent still tethered to a string. A c oil was cystoscopically formed within the bladder and the remainder of the stent went up with ease in to the putative kidney. I then decompressed the bladder and made a careful search for bleeding. Wit h no additional bleeding vessels noted, I then decompressed his bladder again. The string for the st ent was then tethered to the glans penis using Mastisol and Steri-Strips. The patient was then taken out of the lithotomy position, awakened from general anesthesia, transferred to a stretcher, and the n transferred to the recovery room in good condition. Complications: None. Discharge Disposition: He should follow up in the Urology Clinic with nurse practitioner, Aimee schumacher the next 2 or 3 days for tethered ureteral stent removal. Subsequent followup can be establish ed with me in the Urology Clinic to discuss the pathology of the biopsies in approximately 2 weeks' t elisa. Of note, a dose of antimicrobial prophylaxis can be provided at the time of stent extraction. TANYA/MODL Voice ID: [id number] Report ID: [id number]
[2021-05-08 16:35] VITALS: BP 150/62; TEMP 96.3; O2SAT 100
--- NOTE | 2021-05-09 12:52 | EKG ---
Test Date: 2021-05-08 Test Time: 08:41:15 Aesthetics Instructor: TG MEASUREMENT RESULTS: Intervals: Rate: 61 UT: 164 QRSD: 72 QT: 466 QTc: 469 Hilger: P: 24 UT: 164 QRS: 12 T: 25 INTERPRETIVE STATEMENTS: Normal sinus rhythm Normal ECG Compared to ECG 02/18/2020 15:46:43 No significant changes Electronically Signed On 05-09-21 12:50:34 CDT by Sandor Gan
== END 2021-05-08 15:41 | disposition home or self-care (01) ==
LOC: OR 09:23
PROVIDERS: ATTEND Urology
PROC: 0T9780Z Drainage of Left Ureter with Drainage Device, Via Natural or Artificial Opening Endoscopic (ICD-10-PCS; 2021-05-08)
PROC: 0TBB8ZX Excision of Bladder, Via Natural or Artificial Opening Endoscopic, Diagnostic (ICD-10-PCS; principal; 2021-05-08 11:00)
DX: D09.0 Carcinoma in situ of bladder (principal); Z20.822 Contact with and (suspected) exposure to COVID-19
CPT/HCPCS: 93005; 87088; 87086; 36415; 85610; 88305; 71046; 52204; 52332; U0002; J2704; J3010; J0690; J7120; J2405

== ENCOUNTER 2021-12-25 08:23 | Day surgery (SDC) | payer OTHER ==
[2021-12-20 11:06] LABS: Absolute Lymphocytes (CBC) 0.9 K/uL (0.7-4.9); Hematocrit 34.8 % (39.6-49.0); Lymphocytes % 17.4 % (15.3-44.8); MPV 7.6 fL (7.6-11.3); RBC Red Blood Cell Count 3.92 M/uL (4.33-5.43)
[2021-12-20 11:08] LABS: Protime INR 1.1
[2021-12-20 11:34] LABS: BUN Blood Urea Nitrogen 22 mg/dL (7-18); Bicarbonate 27 mmol/L (21-32); Glucose Level 128 mg/dL (74-106); Potassium 5.1 mmol/L (3.5-5.1); Sodium Level 137 mmol/L (136-145)
[2021-12-25] MEDS ORDERED: Ringers Lactate 1,000 ML IV ONE (09:01)
[2021-12-25] MEDS ORDERED: CEFAZOLIN/SWI 2gm 2 GM/20 ML SYR ONE (09:02)
[2021-12-25] MEDS ORDERED: GEMCITABINE HCL 26.3 ML IVPB ONE (09:45)
[2021-12-25] MEDS ORDERED: FENTANYL CITR 100 MCG/2 ML ONE (11:09)
[2021-12-25] MEDS ORDERED: LIDOCAINE 1% MPF 5 ML VIAL ONE ×2 (11:09→12:18)
[2021-12-25] MEDS ORDERED: propofoL 200 MG/20 ML VIAL IV ONE (11:09)
[2021-12-25] MEDS ORDERED: ROCURONIUM 50 MG/5 ML VIAL IV ONE (11:28)
[2021-12-25] MEDS ORDERED: EPHEDRINE SULF 50 MG/ML VIAL ONE (11:43)
[2021-12-25] MEDS ORDERED: NS 0.9% VIAL 10 ML ONE (11:43)
[2021-12-25] MEDS ORDERED: dexAMETHasone 10 MG/ML VIAL ONE (11:55)
[2021-12-25] MEDS ORDERED: ONDANSETRON 4 MG/2 ML VIAL ONE (11:56)
[2021-12-25] MEDS ORDERED: KETOROLAC 30 MG/ML INJ ONE (11:56)
[2021-12-25] MEDS ORDERED: NEOSTIGMINE 1 MG/ML -5 ML ONE (11:57)
[2021-12-25] MEDS ORDERED: GLYCOPYRROLATE 0.2 MG/ML SYR ONE (11:57)
[2021-12-25] MEDS ORDERED: OPIUM/BELLADONNA SUPPOS (30-16.2 MG) PR ONE ×2 (12:38→13:17)
[2021-12-25] MEDS ORDERED: CODEINE 30MG/APAP 300MG TAB PO PRN (13:17)
[2021-12-25] MEDS ORDERED: LIDOCAINE JELLY 2% 5 ML SYRINGE TOP ONE (14:01)
[2021-12-25 18:04] VITALS: BP 125/57; TEMP 97.6; O2SAT 100
--- NOTE | 2021-12-26 09:41 | OP ---
Surgeon: SARIKA JERRY Preoperative Diagnosis: Bladder tumor, history of urothelial carcinoma of the bladder. Postoperative Diagnoses: 1.Bladder tumor, history of urothelial carcinoma of the bladder. 2.Prostatic urethral papillary lesion. Principal Procedures: 1.Cystoscopy with bladder biopsy. 2.Transurethral resection of the bladder tumor. 3.Prostatic urethral biopsies. 4.Instillation of gemcitabine 2 g in 50 cc normal saline intravesical chemotherapy for 1 hour. Indication For Procedure: Mr. Castillo is an 81-year-old gentleman with atrial fibrillation, on Xarelto, who underwent cardiac ablation in 2005 and has coronary artery disease with three stents placed in O ctober of 2019 associated with hypertension. He has bothersome lower urinary symptoms due to BPH and on initial evaluation was identified to have a bladder tumor. He underwent cystoscopy and bladder b iopsies 05/08/2021 revealing Ta high-grade papillary urothelial carcinoma. He subsequently underwent an induction course of BCG that had to be decreased of one-half a dose due to febrile reaction with malaise and eventually was able to complete the induction course. He then underwent followup cystosc opy, which was unremarkable before beginning maintenance phase therapy and after the first dose of a maintenance injection, he had significant side effects, which seem to outweigh the benefits of treati ng a noninvasive, but high-grade urothelial carcinoma. As a result, we discontinued further BCG ther apy and continued with cystoscopic evaluation. Subsequent cystoscopy then revealed some micropapilla ry lesions at the bladder neck and so he was recommended for cystoscopy with bladder biopsies. He pr esents today for that evaluation. Procedure In Detail: The patient was consented in the preoperative holding area before being transfe rred to the operative suite, where general anesthesia was induced. He was given Ancef IV antimicrobi al prophylaxis and pneumo boots were provided for DVT prophylaxis. He was placed in the lithotomy po sition, padded and secured to the table appropriately. His genitalia were prepped using Liniclens an d draped in standard fashion. The case was begun using a 22-Citizen Of [place] rigid cystoscope to traverse the urethra and into the bladder with ease. There was significant elevation of the bladder neck in assoc iation with his known BPH with lower urinary tract obstructive symptoms. There was also some lateral lobar hypertrophy. Upon entry into the bladder, immediately posteriorly in the left pee trigone, t here was nodular area of irregular appearing mucosa consistent with potential tumor recurrence. The remainder of the bladder was trabeculated, but largely free of significant mucosal lesion with the ex ception of a solitary papillary lesion seen in the bladder neck at 11 p.m. as had previously been william ntified. The 4 p.m. lesion that was previously seen was part of some of the mucosal nodularity seen extending into the posterior region of his bladder. As a result, I began using the cold cup biopsy f orceps to sample some of the irregular mucosa in that area with taking note of the left ureteral orif ice visible just laterally to the area of irregular mucosa. After taking a few different samples and finding that the area of tumor involvement was more extensive and likely approximately [address], I then switched to normal saline and dilated the urethra and meatus with urethral sounds before placing a 26-Citizen [place] bipolar resectoscope. Then, using a thin loop, I continued and resected the enti rety of the irregular nodular mucosa medial to the left ureteral orifice extending to the bladder nec k. This was all sent for pathologic analysis as left posterior trigone bladder tumor. I then turned my attention to the papillary lesion seen at 11 p.m. and removed this and sent that for pathologic a nalysis. Careful fulguration of the base of the tumor removed was performed into the muscle fibers o f the bladder posteriorly and at the bladder neck. I then surveyed the remainder of the prostatic ur ethra, and there was some papillary tissue noted around the verumontanum and for completeness, I took prostatic urethral biopsies using the loop to resect at the 5 o'clock and the 7 o'clock position and then the tissue overlying the verumontanum. The remainder of the median bar that was isolated in [facility] was also resected to level it more with the bladder neck and keep for symmetry for his subse quent voiding comfort. These chips were sent for pathologic analysis. I then fulgurated the area un til no significant residual oozing was noted. I then carefully surveyed the bladder with decompress for any bleeding. With no additional bleeding noted, I left his bladder full and placed a 20-Citizen [place] two-way Taylor catheter coude tipped. I then decompressed his bladder of fluid and urine, and retrogr malick instilled 50 cc of 2 g gemcitabine in normal saline. The catheter was clamped with 30 cc in the balloon and the gemcitabine in his bladder, and it was connected to a leg bag and his genitalia was t oweled off using the blue and the green towels in case he had a bladder spasm resulting in the gemcit abine exposing his genitalia. He was then taken out of the lithotomy position, awakened from general anesthesia, transferred to a stretcher, and then transferred to the recovery room in good condition. Complications: None. Discharge Disposition: He should follow up in the Urology Clinic in 2 to 3 weeks to discuss the resu lts of the pathology and determine subsequent steps. TANYA/LIBORIO Voice ID: [id number] Report ID: [id number]
== END 2021-12-25 15:30 | disposition home or self-care (01) ==
LOC: OR 08:23
PROVIDERS: ATTEND Urology
PROC: 0TBD8ZX Excision of Urethra, Via Natural or Artificial Opening Endoscopic, Diagnostic (ICD-10-PCS; 2021-12-25)
PROC: 3E0K705 Introduction of Other Antineoplastic into Genitourinary Tract, Via Natural or Artificial Opening (ICD-10-PCS; 2021-12-25)
PROC: 0TBB8ZX Excision of Bladder, Via Natural or Artificial Opening Endoscopic, Diagnostic (ICD-10-PCS; principal; 2021-12-25 09:45)
DX: C68.0 Malignant neoplasm of urethra (principal); D09.0 Carcinoma in situ of bladder; N42.9 Disorder of prostate, unspecified; Z85.51 Personal history of malignant neoplasm of bladder; Z20.822 Contact with and (suspected) exposure to COVID-19
CPT/HCPCS: 52234; 52204; 51720; 93005; 87088; 85025; 87086; 80048; 36415; 85610; 88305; U0002; J2704; J3010; J1100; J2710; J0690; J9201; J7120; J2405

== ENCOUNTER 2021-12-25 21:03 | Emergency (ER) | payer OTHER ==
--- OUTSIDE RECORDS SUMMARY | 2021-12-25 21:06 | XMS REPORT | Continuity of Care Document ---
:1940 Author Organization [facility] Address [address] [place] [address] [address]. [address] [place] [address] Care Team Providers Name Role Phone KELLI, A Attending Clinician Unavailable Kelli NEGRO, A Attending Clinician Pob, Lab Main Attending Clinician Unavailable Doctor Unassigned, Name Attending Clinician Unavailable KELLI, A Admitting Clinician Unavailable Kelli NEGRO, A Admitting Clinician Payers Payer Name Policy Type Policy Number Effective Date Expiration Date S norma [employer] MEDICARE ADV [id number] 2020 00:00:00 Problems This patient has no known problems. Allergies, Adverse Reactions, Alerts Allergy Allergy Status Severity Reaction(s) Onset Inactive Treating Comm ents Source Name Type Date Date Clinician NO KNOWN Drug Active Univers ALLERGIE Class [facility] Social History Social Habit Start Date Stop Date Quantity Comments Source Exposure to Not sure [facility] SARS-CoV-2 (event) Medica l Branch Tobacco use and 2021-02-21 2021-02-[address] [facility] exposure 00:00:00 00:00:00 [facility] Sex Assigned At [address] 1940 [facility] 00:00:00 00:00:00 [facility] Smoking Status Start Date Stop Date Source Unknown if ever smoked [facility] Never smoker [facility] Medications Ordered Filled Start Stop Current Ordering Indication Dosage Frequency Signature Comments Components Source Medication Medication Date Date Medication? Clinician (SIG) Name Name sotaloL 160 2020- Yes 120mg Take 120 U nivers mg tablet 6-16 mg by ity of 17:17: mouth [place] 27 daily. Medical Branch olmesartan Yes 20mg Take 20 mg U nivers 20 mg 6-16 by mouth ity of tablet 17:17: daily. [address] atorvastati Yes 40mg Take 40 mg Univers n 40 mg 6-16 by mouth ity of tablet 17:17: at [place] [address] bedtime. Medical Branch rivaroxaban Yes Take by Un laron (XARELTO) 6-16 mouth. ity of 20 mg 17:17: [address] tamsulosin Yes Take by Uni vers 0.4 mg 24 6-16 mouth ity of hr capsule 17:17: daily. [address] finasteride 0 Yes 5mg Take 5 mg U nivers 5 mg tablet 6-16 by mouth ity of 17:17: daily. [address] sotaloL 160 Yes 120mg Take 120 U nivers mg tablet 6-16 mg by ity of 17:17: mouth [place] [address] daily. [facility] Branch olmesartan Yes 20mg Take 20 mg U nivers 20 mg 6-16 by mouth ity of tablet 17:17: daily. [address] atorvastati Yes 40mg Take 40 mg Univers n 40 mg 6-16 by mouth ity of tablet 17:17: at [place] [address] bedtime. Medical Branch rivaroxaban Yes Take by Un laron (XARELTO) 6-16 mouth. ity of 20 mg 17:17: [address] tamsulosin Yes Take by Uni vers 0.4 mg 24 6-16 mouth ity of hr capsule 17:17: daily. [address] finasteride Yes 5mg Take 5 mg U nivers 5 mg tablet 6-16 by mouth ity of 17:17: daily. [address] water for 0 Yes PRN, Univers irrigation 6-16 Starting ity o f irrigation 15:30: Wed [place] solution 00 02/21/21 at Medic [place] [address] [place] [address] Until Discontinu ed, Routine, Intra-op sodium 0 Yes PRN, Univers chloride 6-16 Starting ity of (NS) 15:30: Wed [place] injection 00 02/21/21 at Medi inez [address] Until Discontinu ed, Routine, Intra-op neomycin-po 0 Yes PRN, Univer s lymyxin-dex 6-16 Starting ity of amethasone 15:30: Wed [place] (MAXITROL) 00 02/21/21 at Med ical 3.5 1030, Branch mg/g-10,000 Until unit/g-0.1 Discontinu % ed, ophthalmic Routine, ointment Intra-op water for 2020- No PRN, Univers irrigation 02-21 Starting ity of irrigation 15:30: 19:17 Fri [place] solution 00 :27 02/21/21 at Medic al 1030, Branch Until Fri02/21/21 at 1417, Routine, Intra-op sodium 2020- No PRN, Univers chloride 02-21 Starting ity of (NS) 15:30: 19:17 Fri [place] injection 00 :27 02/21/21 at [facility] 1030, Branch Until Fri02/21/21 at 1417, Routine, Intra-op neomycin-po 2020- No PRN, Unive rs lymyxin-dex 02-21 Starting ity of amethasone 15:30: 19:17 [facility] [place] (MAXITROL) 00 :27 02/21/21 at [facility] ical 3.5 1030, Branch mg/g-10,000 Until Wed unit/g-0.1 02/21/21 at % 1417, ophthalmic Routine, ointment Intra-op Hyaluronida Yes PRN, Univer s se, Human 02-21 Starting ity of Recomb. 15:29: Fri [place] (HYLENEX) 00 02/21/21 at [facility] injection 1029, Branch Until Discontinu ed, Routine, Intra-op eye block Yes PRN, Univers syringe 11 02-21 Starting ity o f mL 15:29: Fri [place] 00 02/21/21 at [facility] 1029, Branch Until Discontinu ed, Intra-op Hyaluronida 2020- No PRN, Unive rs se, Human 02-21 Starting ity o f Recomb. 15:29: 19:17 [facility] [place] (HYLENEX) 00 :27 02/21/21 at [facility] injection 1029, Branch Until Fri02/21/21 at 1417, Routine, Intra-op eye block 2020- No PRN, Univers syringe 11 02-21 Starting ity of mL 15:29: 19:17 Fri [place] 00 :27 02/21/21 at Medical 1029, Branch Until Fri02/21/21 at 1417, Intra-op EPINEPHrine Yes PRN, Univer s 1:1,000 (1 02-21 Starting ity o f mg/mL) 14:36: Fri (ADRENALIN) 00 02/21/21 at Ar dical injection 0936, Branch Until Discontinu ed, Routine, Intra-op EPINEPHrine 2020- No PRN, Unive rs 1:1,000 (1 02-21 Starting ity of mg/mL) 14:36: 19:17 Fri (ADRENALIN) 00 :27 02/21/21 at Ar dical injection 0936, Branch Until Fri02/21/21 at 1417, Routine, Intra-op DUOVISC Yes PRN, Univers (DUOVISC 02-21 Starting ity of VISCO 14:35: Fri ELASTIC) 3 02/21/21 at [facility] ica %-4 %(0.5 35, Branch mL) 1 % Until (0.55 mL) Discontinu intraocular ed, injection Routine, Intra-op dexamethaso Yes PRN, Univer s ne 02-21 Starting ity of (DECADRON 14:35: Fri [place] PHOSPHATE) 00 02/21/21 at [facility] ical injection 0935, Branch Until Discontinu ed, Routine, Intra-op ceFAZolin Yes PRN, Univers (ANCEF) 02-21 Starting ity of injection 14:35: Fri [place] 02/21/21 at [facility] 0935, Branch Until Discontinu ed, RADHA, Intra-op carbachoL Yes PRN, Univers (MIOSTAT) 16 Starting ity of 0.01 % 14:35: Fri [place] intraocular 00 02/21/21 at Ar dical injection 0935, Branch Until Discontinu ed, Routine, Intra-op balanced Yes PRN, Univers salt irrig 02-21 Starting ity o f soln comb1 14:35: Fri (BSS PLUS) 00 02/21/21 at [facility] ical ophthalmic 0935, Branch solution Until 500 mL bag Discontinu ed, Routine, Intra-op DUOVISC 2020- No PRN, Univers (DUOVISC 02-21 Starting ity of VISCO 14:35: 19:17 [facility] ELASTIC) 3 00 :27 02/21/21 at [facility] %-4 %(0.5 0935, Branch mL) 1 % Until Wed (0.55 mL) 02/21/21 at intraocular 1417, injection Routine, Intra-op dexamethaso 2020- No PRN, Unive rs ne 02-21 Starting ity of (DECADRON 14:35: 19:17 [facility] PHOSPHATE) 00 :27 02/21/21 at [facility] ical injection 0935, Branch Until 02/21/21 at 1417, Routine, Intra-op ceFAZolin 2020- No PRN, Univers (ANCEF) 02-21 Starting ity of injection 14:35: 19:17 [facility] 00 :27 02/21/21 at Medical 0935, Branch Until 02/21/21 at 1417, RADHA, Intra-op carbachoL 2020- No PRN, Univers (MIOSTAT) 02-21 Starting ity o f 0.01 % 14:35: 19:17 [facility] intraocular 00 :27 21 at Ar dical injection 0935, Branch Until 02/21/21 at 1417, Routine, Intra-op balanced 2020- No PRN, Univers salt irrig 02-21 Starting ity of soln comb1 14:35: 19:17 [facility] (BSS PLUS) 00 :27 02/21/21 at [facility] ical ophthalmic 0935, Branch solution Until Wed 500 mL bag 02/21/21 at 1417, Routine, Intra-op mydriatic 2020- No .5mL 0.5 mL, Univ ers #5 02-21 Left Eye, ity of ophthalmic 13:45: 13:57 ONCE, 1 [place] as solution 00 :00 dose, Wed Medica l 0.5 mL 02/21/21 at [place] syringe 0845, Routine, DSU Pre-op lactated 2020- No 1000mL at 42 Unive rs ringers IV 02-21 mL/hr, ity of infusion 13:45: 13:57 1,000 mL, [place] as 1,000 mL 00 :00 IV Medical Infusion, Branch ONCE, 1 dose, 02/21/21 at 0845, Routine, DSU Pre-op mydriatic 2020- No .5mL 0.5 mL, Univ ers #5 02-21 Left Eye, ity of ophthalmic 13:45: 13:57 ONCE, 1 [place] solution 00 :00 dose, Wed Medica l 0.5 mL 02/21/21 at Branch syringe 0845, Routine, DSU Pre-op lactated 2020- No 1000mL at 42 [facility] rs ringers IV 02-21 mL/hr, ity of infusion 13:45: 13:57 1,000 mL, [place] as 1,000 mL 00 :00 IV Medical Infusion, Branch ONCE, 1 dose, 02/21/21 at 0845, Routine, DSU Pre-op Vital Signs Vital Name Observation Time Observation Value Comments Source Systolic blood 2021-02-21 17:06:00 144 mm[Hg] [facility] Diastolic blood 2021-02-21 17:06:00 85 mm[Hg] [facility] Heart rate 2021-02-21 17:06:00 63 /min [facility] Respiratory rate 2021-02-21 17:06:00 12 /min [facility] Oxygen saturation in 2021-02-21 17:06:00 99 /min [facility] Arterial blood by [facility] Pulse oximetry [place] Body temperature 2021-02-21 16:50:00 36.83 Karine [facility] BMI 2021-02-14 18:20:00 29.18 kg/m2 [facility] Body height 2021-02-14 18:20:00 182.9 cm [facility] Body weight 2021-02-14 18:20:00 97.6 kg [facility] Systolic blood 2021-02-21 13:45:00 174 mm[Hg] Univer sity [facility] Diastolic blood 2021-02-21 13:45:00 91 mm[Hg] [facility] rsity of pressure [facility] Heart rate 2021-02-21 13:45:00 66 /min [facility] Body temperature 2021-02-21 13:45:00 36.56 Karine [facility] 2021-02-21 13:45:00 19 /min [facility] Oxygen saturation in 2021-02-21 13:45:00 97 /min [facility] Arterial blood by [facility] Pulse oximetry [place] Body height 2021-02-14 18:20:00 182.9 cm [facility] Body weight 2021-02-14 18:20:00 97.6 kg [facility] BMI 2021-02-14 18:20:00 29.18 kg/m2 [facility] Procedures Procedure Date / Time Performing Source Performed Clinician PHACOEMULSIFICATION OF 2021-02-21 Sanchez Pereira [facility] CATARACT WITH INTRAOCULAR 16:11:00 [facility] LENS IMPLANT ASSIGNMENT OF BENEFITS 2021-02-14 Doctor Unassigned, [facility] 16:16:[address] [place] [facility] Encounters Start End Encounter Admission Attending Care Care Encounter Source Date/Time Date/Time Type Type Clinicians Facility Department ID 2021-07-09 [id number] Univers 00:07:48 [facility] 2021-02-21 2021-02-21 [facility] [id number] Univers 08:40:00 12:17:00 Encounter Sanchez Dobbs [id number] it[id number] [id number] [facility] 071 Branch 2021-02-21 2021-02-21 [facility] [id number] Univers 10:58:00 11:38:00 Sanchez Dobbs [id number] [id number] [id number] [facility] 020 Branch 2021-02-20 2021-02-20 Outpatient R KELLI [facility] [id number] Univers 09:15:00 09:15:00 SANCHEZ calix [facility] 2021-02-14 2021-02-14 Layout Operator Shivam, Laurent Lab Main [facility] [id number] Univers 11:14:10 11:29:10 Visit Sanchez Pereira Leny Dobbs [id number] [id number] Profess[place] [id number] Ar dical [address] 2021-02-14 2021-02-14 Outpatient Florencia PEREIRA [facility] [id number] Univers 10:45:00 10:45:00 SANCHEZ calix [facility] 2021-02-14 2021-02-14 Orders Doctor RADHA [id number] Univers 00:00:00 00:00:00 Only Unassigned, RACHEL [id number] ity of [place] [facility] [id number] [place] as [id number] [place] [address] Branch Results This patient has no known results.
[2021-12-25 23:38] LABS: Absolute Lymphocytes (CBC) 0.5 K/uL (0.7-4.9); Hematocrit 34.4 % (39.6-49.0); Lymphocytes % 5.1 % (15.3-44.8); MPV 7.6 fL (7.6-11.3)
[2021-12-25 23:45] LABS: Protime INR 1.2
[2021-12-25 23:46] LABS: Urine RBC TNTC /HPF (NONE SEEN)
[2021-12-25 23:47] LABS: Urine Bacteria <20 /HPF (NONE SEEN)
[2021-12-25 23:49] LABS: Bilirubin Total 0.8 mg/dL (0.2-1.0); Potassium 4.9 mmol/L (3.5-5.1)
[2021-12-26 00:02] LABS: Blood Morphology Comment NOT SEEN (NOT SEEN); Platelet Estimate ADEQ
--- NOTE | 2021-12-26 04:48 | ER ---
Nurse's Notes [facility] [place] Name: Antonio Castillo Jr Age: 81 yrs Sex: Male : 1940 Arrival Date: 12/25/2021 Time: 21:04 Bed 3 Private MD: Diagnosis: Hematuria, post operative Presentation: 12/25 21:35 Chief complaint: Patient states: Had whiting catheter placed at 1530 today after urology lp1 procedure with Dr. Bond, jakob blood in whiting catheter on insertion, concerned whiting may clot if not flushed; Told by Dr. Bond to come to ER if continued blood draining from whitign. 21:35 Method Of Arrival: Ambulatory lp1 21:35 Acuity: KULWINDER 3 lp1 21:58 Onset of symptoms was December 25, 2021. as6 22:08 Coronavirus screen: At this time, the client does not indicate any symptoms associated as6 with coronavirus-19. Ebola Screen: No symptoms or risks identified at this time. Initial Sepsis Screen: Does the patient meet any 2 criteria? No. Patient's initial sepsis screen is negative. Does the patient have a suspected source of infection? No. Patient's initial sepsis screen is negative. Risk Assessment: Do you want to hurt yourself or someone else? Patient reports no desire to harm self or others. Historical: - Allergies: 22:10 No Known Allergies; as6 - Home Meds: 22:10 tamsulosin 0.4 mg Oral cp24 1 cap once daily [Active]; sotalol 120 mg Oral tab 1 tab 2 as6 times per day [Active]; finasteride 5 mg Oral tab 1 tab once daily [Active]; atorvastatin 20 mg oral tab 1 tab once daily [Active]; - PMHx: 22:10 Atrial Fib; cardioversion; Hypertension; sebaceous cyst removal; bladder cancer; as6 - PSHx: 22:10 Stented artery; as6 - Immunization history:: Client reports receiving the 2nd dose of the Covid vaccine, moderna. - Social history:: Smoking status: Patient denies any tobacco usage or history of. Screenin:14 Abuse screen: Denies threats or abuse. Denies injuries from another. Nutritional as6 screening: No deficits noted. Nutritional screening: No deficits noted. Tuberculosis screening: No symptoms or risk factors identified. Fall Risk None identified. Assessment: 22:53 General: Appears in no apparent distress. Behavior is calm, cooperative. Pain: as6 Complains of pain in groin and suprapubic area. Neuro: Level of Consciousness is awake, alert, obeys commands, Oriented to person, place, time, situation. Cardiovascular: Capillary refill < 3 seconds Patient's skin is warm and dry. Respiratory: Airway is patent Trachea midline Respiratory effort is even, unlabored, Respiratory pattern is regular, symmetrical. GI:. : Whiting in place to gravity drainage Urine is jakob blood. 12/26 01:44 Reassessment: Patient appears in no apparent distress at this time. Patient and/or lg3 family updated on plan of care and expected duration. Pain level reassessed. Patient is alert, oriented x 3, equal unlabored respirations, skin warm/dry/pink. General: Behavior is agitated, anxious, fussy. Vital Signs: 12/25 22:08 BP 126 / 68; Pulse 102; Resp 18 S; Temp 98.6(O); Pulse Ox 98% on R/A; Weight 97.07 kg as6 (R); Height 6 ft. (182.88 cm) (R); Pain 2/10; 23:30 BP 126 / 75; Pulse 93; Resp 18 S; Pulse Ox 99% on R/A; as6 12/26 00:30 BP 140 / 79; Pulse 93; Resp 18; Pulse Ox 100% on R/A; oe 02:42 BP 121 / 70; Pulse 87; Resp 18 S; Pulse Ox 98% on R/A; as6 03:30 BP 122 / 71; Pulse 74; Resp 18; Pulse Ox 100% on R/A; as6 04:40 BP 132 / 98; Pulse 62; Resp 18 S; Pulse Ox 98% on R/A; as6 12/25 22:08 Body Mass Index 29.02 (97.07 kg, 182.88 cm) as6 ED Course: 12/25 21:04 Patient arrived in ED. kz 21:36 Triage completed. lp1 21:37 Jason Bronson, JARAD is Primary Nurse. as6 22:11 Isma Graham MD is Attending Physician. mh7 22:14 Arm band placed on. as6 22:14 Bed in low position. Call light in reach. Side rails up X 1. Adult w/ patient. Pulse ox as6 on. NIBP on. 23:20 Inserted saline lock: 20 gauge in right antecubital area, using aseptic technique. as6 Blood collected. 23:29 Protime (+inr) Sent. as6 23:29 Ptt, Activated Sent. as6 23:29 CBC with Diff Sent. as6 23:29 CMP Sent. as6 23:29 Urine Microscopic Only Sent. as6 23:54 Bladder irrigated via Whiting with 120 normal saline. as6 12/26 00:13 CT Abd/Pelvis - Without Contrast In Process Unspecified. EDMS 04:47 Akil Bond MD is Referral Physician. [facility] 05:15 No provider procedures requiring assistance completed. IV discontinued, intact, as6 bleeding controlled, No redness/swelling at site. Pressure dressing applied. Administered Medications: No medications were administered Outcome: 04:48 Discharge ordered by . [facility] 05:16 Discharged to home ambulatory, with significant other. as6 05:16 Condition: stable 05:16 Discharge instructions given to patient, Instructed on discharge instructions, follow up and referral plans. Demonstrated understanding of instructions, follow-up care. 05:16 Patient left the ED. as6 Signatures: Dispatcher [employer] EDDE Chhaya Blanco, RN RN lp1 Sanket Soto Lacie, JARAD RN lg3 Isma Graham MD MD 7 Jason Bronson RN RN as6 Renetta Dwyer
--- NOTE | 2021-12-26 04:48 | EDPHYS ---
Physician Documentation [facility] Name: Antonio Castillo Jr Age: 81 yrs Sex: Male : 1940 Arrival Date: 12/25/2021 Time: 21:04 Bed 3 Private MD: ED Physician Isma Graham HPI: 12/25 23:05 This 81 yrs old Male presents to ER via Ambulatory with complaints of Complication mh7 following cystoscopy. 23:05 The patient presents with a Taylor catheter problem, draining bloody urine. Onset: The mh7 symptoms/episode began/occurred today. Modifying factors: The symptoms are alleviated by nothing, the symptoms are aggravated by nothing. Associated signs and symptoms: Pertinent positives: hematuria, Pertinent negatives: abdominal pain, constipation, diarrhea, dysuria, fever, nausea, vomiting. Severity of symptoms: At their worst the symptoms were moderate, earlier today, in the emergency department the symptoms have improved, moderately. States that he had surgical procedure with removal of bladder tumors today and had Taylor catheter placed with had blood from it and later some clots. Denies any fever, abdominal pain, SOB, nausea, vomiting, dysuria.. Historical: - Allergies: 22:10 No Known Allergies; as6 - Home Meds: 22:10 tamsulosin 0.4 mg Oral cp24 1 cap once daily [Active]; sotalol 120 mg Oral tab 1 tab 2 as6 times per day [Active]; finasteride 5 mg Oral tab 1 tab once daily [Active]; atorvastatin 20 mg oral tab 1 tab once daily [Active]; - PMHx: 22:10 Atrial Fib; cardioversion; Hypertension; sebaceous cyst removal; bladder cancer; as6 - PSHx: 22:10 Stented artery; as6 - Immunization history:: Client reports receiving the 2nd dose of the Covid vaccine, moderna. - Social history:: Smoking status: Patient denies any tobacco usage or history of. ROS: 23:05 Constitutional: Negative for fever, chills, and weight loss, Eyes: Negative for injury, mh7 pain, redness, and discharge, ENT: Negative for injury, pain, and discharge, Neck: Negative for injury, pain, and swelling, Cardiovascular: Negative for chest pain, palpitations, and edema, Respiratory: Negative for shortness of breath, cough, wheezing, and pleuritic chest pain, Abdomen/GI: Negative for abdominal pain, nausea, vomiting, diarrhea, and constipation, Back: Negative for injury and pain, MS/Extremity: Negative for injury and deformity, Skin: Negative for injury, rash, and discoloration, Neuro: Negative for headache, weakness, numbness, tingling, and seizure, Psych: Negative for depression, anxiety, suicide ideation, homicidal ideation, and hallucinations, Allergy/Immunology: Negative for hives, rash, and allergies, Endocrine: Negative for neck swelling, polydipsia, polyuria, polyphagia, and marked weight changes, Hematologic/Lymphatic: Negative for swollen nodes, abnormal bleeding, and unusual bruising. Exam: 23:05 Constitutional: This is a well developed, well nourished patient who is awake, alert, mh7 and in no acute distress. Head/Face: Normocephalic, atraumatic. Eyes: Pupils equal round and reactive to light, extra-ocular motions intact. Lids and lashes normal. Conjunctiva and sclera are non-icteric and not injected. Cornea within normal limits. Periorbital areas with no swelling, redness, or edema. Neck: Trachea midline, no thyromegaly or masses palpated, and no cervical lymphadenopathy. Supple, full range of motion without nuchal rigidity, or vertebral point tenderness. No Meningismus. Chest/axilla: Normal chest wall appearance and motion. Nontender with no deformity. No lesions are appreciated. Cardiovascular: Regular rate and rhythm with a normal S1 and S2. No gallops, murmurs, or rubs. Normal PMI, no JVD. No pulse deficits. Respiratory: Lungs have equal breath sounds bilaterally, clear to auscultation and percussion. No rales, rhonchi or wheezes noted. No increased work of breathing, no retractions or nasal flaring. Abdomen/GI: Soft, non-tender, with normal bowel sounds. No distension or tympany. No guarding or rebound. No evidence of tenderness throughout. Back: No spinal tenderness. No costovertebral tenderness. Full range of motion. Skin: Warm, dry with normal turgor. Normal color with no rashes, no lesions, and no evidence of cellulitis. MS/ Extremity: Pulses equal, no cyanosis. Neurovascular intact. Full, normal range of motion. Neuro: Awake and alert, GCS 15, oriented to person, place, time, and situation. Cranial nerves II-XII grossly intact. Motor strength 5/5 in all extremities. Sensory grossly intact. Cerebellar exam normal. Normal gait. Psych: Awake, alert, with orientation to person, place and time. Behavior, mood, and affect are within normal limits. Vital Signs: 22:08 BP 126 / 68; Pulse 102; Resp 18 S; Temp 98.6(O); Pulse Ox 98% on R/A; Weight 97.07 kg as6 (R); Height 6 ft. (182.88 cm) (R); Pain 2/10; 23:30 BP 126 / 75; Pulse 93; Resp 18 S; Pulse Ox 99% on R/A; as6 12/26 00:30 BP 140 / 79; Pulse 93; Resp 18; Pulse Ox 100% on R/A; oe 02:42 BP 121 / 70; Pulse 87; Resp 18 S; Pulse Ox 98% on R/A; as6 03:30 BP 122 / 71; Pulse 74; Resp 18; Pulse Ox 100% on R/A; as6 04:40 BP 132 / 98; Pulse 62; Resp 18 S; Pulse Ox 98% on R/A; as6 12/25 22:08 Body Mass Index 29.02 (97.07 kg, 182.88 cm) as6 MDM: 04:45 Differential diagnosis: UTI, Taylor catheter problem, urethritis, post operative mh7 hematuria. Data reviewed: vital signs, nurses notes, lab test result(s), CBC, electrolytes, urinalysis, radiologic studies, CT scan. Data interpreted: Pulse oximetry: on room air is 98 %. Interpretation: normal. Counseling: I had a detailed discussion with the patient and/or guardian regarding: the historical points, exam findings, and any diagnostic results supporting the discharge/admit diagnosis, lab results, radiology results, the need for outpatient follow up, a urologist, to return to the emergency department if symptoms worsen or persist or if there are any questions or concerns that arise at home. Response to treatment: the patient's symptoms have markedly improved after treatment. 04:48 Patient medically screened. [facility] 12/25 22:59 Order name: CBC with Diff; Complete Time: 00:47 [facility] 12/25 22:59 Order name: CMP; Complete Time: 00:47 [facility] 12/25 22:59 Order name: Urine Microscopic Only; Complete Time: 00:47 [facility] 12/25 22:59 Order name: Protime (+inr); Complete Time: 00:47 [facility] 12/25 22:59 Order name: Ptt, Activated; Complete Time: 00:47 [facility] 12/25 23:42 Order name: Manual Differential; Complete Time: 00:47 [facility] 12/25 22:59 Order name: IV Saline Lock; Complete Time: 23:29 [facility] 12/25 22:59 Order name: Labs collected and sent; Complete Time: 23:29 [facility] 12/25 22:59 Order name: CT Abd/Pelvis - Without Contrast [facility] 12/25 23:50 Order name: Urine Culture [facility] 12/26 03:52 Order name: HIV (1; Complete Time: 04:44 [facility] 12/26 03:52 Order name: Hep B Surface AG w/ Confirm [facility] 12/26 03:52 Order name: Hepatitis B Core IgM Antibody [facility] 12/26 03:52 Order name: HCV w/reflex PCR [facility] 12/25 22:59 Order name: Urine Dipstick-Ancillary (obtain specimen); Complete Time: 23:29 [facility] Administered Medications: No medications were administered Disposition Summary: 12/26/21 04:48 Discharge Ordered Location: Home [facility] Problem: new [facility] Symptoms: have improved [facility] Condition: Stable [facility] Diagnosis - Hematuria, post operative [facility] Followup: [facility] - With: Private Physician - When: 1 - 2 days - Reason: Worsening of condition, Recheck today's complaints, Continuance of care, Re-evaluation by your physician Followup: [facility] - With: Akil Bond MD - When: 1 - 2 days - Reason: Worsening of condition, Recheck today's complaints, Continuance of care, Re-evaluation by your physician Discharge Instructions: - Discharge Summary Sheet [facility] - Hematuria, Adult [facility] - Indwelling Urinary Catheter Care, Adult, [id number] [facility] Forms: - Medication Reconciliation Form [facility] - Thank You Letter [facility] - Antibiotic Education [facility] - Prescription Opioid Use [facility] Signatures: Dispatcher [employer] Isma Maldonado MD MD 7 Jason Bronson RN RN as6 Kandy Gomez PA PA [phone]
[2021-12-26 10:21] VITALS: TEMP 98.6
[2021-12-26 10:28] VITALS: BP 132/98; O2SAT 98
--- NOTE | 2021-12-26 11:50 | RAD REPORT ---
EXAM DESCRIPTION: CT - Abdomen Pelvis Wo Contrast - 12/26/2021 6:45 am CLINICAL HISTORY: Hematuria, gross/macroscopic TECHNIQUE: Axial computed tomography images of the abdomen and pelvis without intravenous contrast. Sagittal and coronal reformatted images were created and reviewed. This CT exam was performed usi ng one or more of the following dose reduction techniques: automated exposure control, adjustment o f the mA and/or kV according to patient size, and/or use of iterative reconstruction technique. COMPARISON: CT Abdomen Pelvis dated 03/19/2021 FINDINGS: Lung bases: Bibasilar subsegmental atelectasis/pleural parenchymal scar. 5 mm left lower lobe subpleural nodule new from the prior (series 201 image 16, series 202 image 59 and series 203 i mage 107). Additional faint peripheral nodular opacities within the lungs bilaterally, the majority o f which were not definitively present on the prior. Heart: Coronary artery and mitral annular calcification. ABDOMEN: Liver: Unremarkable. Gallbladder and bile ducts: Unremarkable. No calcified stones. No ductal dilation. Pancreas: Unremarkable. No ductal dilation. Spleen: Unremarkable. No splenomegaly. Adrenals: Unremarkable. No mass. Kidneys and ureters: Right renal cysts, the largest 2.6 cm at the lateral upper to mid pole of the right kidney without significant interval change. No follow-up imaging is necessary. 3 mm calculus at the lower pole collecting system on the left. No hydronephrosis. Stomach and bowel: Moderate stool. Colonic diverticula without adjacent inflammatory change. No obs truction. No appreciable mucosal thickening. PELVIS: Appendix: Normal caliber appendix. No findings to suggest acute appendicitis. Bladder: The urinary bladder is distended. There is lobulated hyperdensity and scattered gas foci s urrounding the Taylor catheter balloon measuring approximately 5.3 x 5.2 x 5.3 cm. Additional nondepen dent gas foci are present. No stones. Reproductive: Unremarkable as visualized. ABDOMEN and PELVIS: Intraperitoneal space: Unremarkable. No free air. No significant fluid collection. Bones/joints: Multilevel spondylosis. 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 Interval development of scattered sclerotic osseous lesions involving the right ribs, thoracic and lumbar spine, sacrum, and most pronounced at the leve l of the pelvis bilaterally. No acute fracture. No dislocation. Soft tissues: Small fat-containing umbilical and bilateral inguinal hernias. Vasculature: Mild to moderate atherosclerotic disease. No abdominal aortic aneurysm. Lymph nodes: Unremarkable. No enlarged lymph nodes. IMPRESSION: 1. Lobulated hyperdensity surrounding the Taylor catheter balloon measuring approximate ly 5.3 cm suggestive of hemorrhagic clot. An underlying bladder mass is not excluded. 2. 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 3. Other findings as above. Electronically signed by: Ricky Ricardo MD 12/26/2021 1:23 AM CDT Due to temporary technical issues with the PACS/Fluency reporting system, reports are being signed by the in house radiologist without review as a courtesy to ensure prompt reporting. The interpreting r adiologist is fully responsible for the content of the report.
== END 2021-12-26 05:16 | disposition home or self-care (01) ==
LOC: ER 21:03
DX: R31.9 Hematuria, unspecified (principal); Z98.890 Other specified postprocedural states; C67.9 Malignant neoplasm of bladder, unspecified; I10 Essential (primary) hypertension; I48.91 Unspecified atrial fibrillation
CPT/HCPCS: 87088; 85025; 87086; 36415 ×2; 85610; 85730; 81015; 80053; 86705; 87340; 86803; 74176; G0433

== ENCOUNTER 2021-12-26 16:18 | Day surgery (SDC) | payer OTHER ==
[2021-12-26] MEDS ORDERED: NA CHLORIDE 0.9% 1,000 ML ONE (16:36)
[2021-12-26] MEDS ORDERED: ONDANSETRON 4 MG/2 ML VIAL ONE ×2 (16:41→18:16)
[2021-12-26] MEDS ORDERED: NA CIT/CITRIC AC 30 ML ORAL UDC ONE (17:58)
[2021-12-26] MEDS ORDERED: METOCLOPRAMIDE 10 MG/2mL INJ ONE (18:14)
[2021-12-26] MEDS ORDERED: propofoL 200 MG/20 ML VIAL IV ONE (18:15)
[2021-12-26] MEDS ORDERED: MIDAZOLAM HCL 2 MG/2 ML INJ ONE (18:15)
[2021-12-26] MEDS ORDERED: FENTANYL CITR 100 MCG/2 ML ONE (18:15)
[2021-12-26] MEDS ORDERED: dexAMETHasone 10 MG/ML VIAL ONE (18:16)
[2021-12-26] MEDS ORDERED: LIDOCAINE 1% MPF 5 ML VIAL ONE (18:16)
[2021-12-26] MEDS ORDERED: KETOROLAC 30 MG/ML INJ ONE (18:16)
[2021-12-26] MEDS: CEFAZOLIN/SWI 2gm 2 GM/20 ML SYR ONE ×2 (18:35→19:07)
[2021-12-26] MEDS ORDERED: PHENAZOPYRIDINE 100MG TAB PO ONE ×2 (20:01→20:09)
[2021-12-26 20:14] LABS: Hematocrit 28.4 % (39.6-49.0)
[2021-12-26 20:31] VITALS: TEMP 97.8; O2SAT 98
--- NOTE | 2021-12-26 20:32 | RAD REPORT ---
EXAM DESCRIPTION: RAD - Abdomen 1 View (KUB) - 12/26/2021 8:25 pm CLINICAL HISTORY: Abdomen pain. FINDINGS: The bowel gas pattern is unremarkable. Left ureteral stent in place. Bony sclerotic lesions.
[2021-12-26] MEDS ORDERED: CODEINE 30MG/APAP 300MG TAB ONE (20:37)
[2021-12-26] MEDS ORDERED: LIDOCAINE JELLY 2% 5 ML SYRINGE TOP ONE (20:55)
[2021-12-26 21:12] VITALS: BP 116/62
--- NOTE | 2021-12-27 10:54 | OP ---
Surgeon: SARIKA JERRY Preoperative Diagnoses: 1.Persistent gross hematuria. 2.Clot urinary retention. 3.History of urothelial carcinoma of the bladder, Ta high grade. 4.Status post induction BCG, intolerant of maintenance BCG. 5.Status post cystoscopy with TURBT, prostatic urethral biopsies yesterday 12/25/2021. Postoperative Diagnoses: 1.Persistent gross hematuria. 2.Clot urinary retention. 3.History of urothelial carcinoma of the bladder, Ta high grade. 4.Status post induction BCG, intolerant of maintenance BCG. 5.Status post cystoscopy with TURBT, prostatic urethral biopsies yesterday 12/25/2021. Indication For Procedure: Mr. Castillo presented to the Urology Clinic after having contacted me last ni t with significant gross hematuria. He went to the emergency room last night with clot urinary ret ention and was managed before being discharged. We followed up with him by phone this morning to fin d that he still had significant gross hematuria; so we brought him into the office. There, I changed out his Taylor to a new 20-[place] catheter and irrigated him copiously with several liters of normal saline. The irrigant fluid did quickly clarify, however, it remained persistently port wine colored. As a result, because clots continued to redevelop, I recommended repeat operative evaluation. Procedures: 1.Cystoscopy. 2.Clot evacuation. 3.Fulguration. 4.Placement of left ureteral stent. Findings: Persistent oozing of the intravesical transurethral resection site. Procedure In Detail: The patient was consented in the preoperative holding area before being transfe rred to the operative suite where general anesthesia was induced. He was given Ancef IV antimicrobia l prophylaxis and Pneumoboots were provided for DVT prophylaxis. He was placed in the lithotomy posi tion, padded and secured to the table appropriately. His genitalia were prepped using Hibiclens and draped in standard fashion. The case was begun using a 26-[place] resectoscope and a visual obturator to traverse the urethra and into the bladder with ease. The bladder was entered and initially a sig nificant amount of clot was encountered. As a result, an Ellik evacuator was employed on at least 3 different occasions to remove a significant quantity of clot. Approximately 30 cc of clot was remove d in total. I was unable to visualize the bladder and survey it in its entirety. The intravesical r esection site that was medial to the left ureteral orifice and posterior, but including the trigone i nto the bladder neck region, had a couple of points of continuous capillary arterial oozing. As a re sult, I fulgurated these areas. Survey of the muscular layer of the bladder was still somewhat oozin g as well. As a result, I fulgurated the entirety of the base of the resection site from yesterday. I was able to visualize the right ureteral orifice, which was several cm away from the resection sit e and fulguration. The left ureteral orifice was always very close to the site of resection. After the fulguration was complete, I then again performed a careful search to ensure the ureteral orifices were uninjured, and the right ureteral orifice was patent and unaffected, but the left ureteral orif ice, the medial border of it, had a degree of fulguration. As a result, to prevent stenosis of urete ral orifice and obstruction and hydronephrosis, I removed the resectoscope after decompressing his bl adder completely to ensure no ongoing oozing was occurring. I then replaced the 22-Chilean cystoscope and utilized a 5-Chilean ureteral access catheter and a Sensor wire, which I passed via the ureteral orifice into the putative collecting system. I then passed a 6-Chilean x 28 cm double-J ureteral sten t with ease into the left ureter and collecting system and a coil was formed in the bladder according ly. I then allowed his bladder to completely decompress and observed the site of resection. There w as no ongoing oozing at all, with the bladder completely decompressed. As a result, I surveyed the p rostatic urethra as well where the prostatic urethral biopsies had been taken, and that site was comp letely hemostatic. I then allowed his bladder to completely decompress further and removed the cysto scope. The patient was then taken out of the lithotomy position, awakened from general anesthesia, t ransferred to a stretcher, and then transferred to the recovery room in good condition. Complications: None. Discharge Disposition: I will leave the ureteral stent for the next 3-6 weeks to allow the ureteral orifice to heal and avoid the medial border fulguration from causing obstruction. We can simply plan to remove the stent in clinic when he returns for discussion of his pathology in approximately 3 wee ks' time. TANYA/LIBORIO Voice ID: [id number] Report ID: [id number]
== END 2021-12-26 21:29 | disposition home or self-care (01) ==
LOC: OR 16:18
PROVIDERS: ATTEND Urology
PROC: 0T778DZ Dilation of Left Ureter with Intraluminal Device, Via Natural or Artificial Opening Endoscopic (ICD-10-PCS; 2021-12-26)
PROC: 0TCB8ZZ Extirpation of Matter from Bladder, Via Natural or Artificial Opening Endoscopic (ICD-10-PCS; principal; 2021-12-26 18:30)
DX: R31.0 Gross hematuria (principal); N32.89 Other specified disorders of bladder; R33.8 Other retention of urine; Z98.890 Other specified postprocedural states; Z85.51 Personal history of malignant neoplasm of bladder; Z20.822 Contact with and (suspected) exposure to COVID-19
CPT/HCPCS: 36415; 82947 ×2; 88300; 85018; 85014; 74018; 52001; 52332; J2704; J2765; J2250; J3010; J1100; J0690; J7030; J2405 ×2

== ENCOUNTER 2022-01-04 10:35 | Emergency (ER) | payer OTHER ==
--- OUTSIDE RECORDS SUMMARY | 2022-01-04 10:38 | XMS REPORT | Continuity of Care Document ---
:1940 Author Organization [facility] Address [address] [place] [address] Dr. Jimenes [address] [place] [id number] Care Team Providers Name Role Phone KELLI, A Attending Clinician Unavailable Kelli NEGRO, A Attending Clinician Pob, Lab Main Attending Clinician Unavailable Doctor Unassigned, Name Attending Clinician Unavailable KELLI, A Admitting Clinician Unavailable Kelli NEGRO, A Admitting Clinician Payers Payer Name Policy Type Policy Number Effective Date Expiration Date S norma [employer] MEDICARE ADV [id number] 2020 00:00:00 Problems This patient has no known problems. Allergies, Adverse Reactions, Alerts Allergy Allergy Status Severity Reaction(s) Onset Inactive Treating Comm ents Source Name Type Date Date Clinician NO KNOWN Drug Active Univers ALLERGIE Class ity of [facility] Social History Social Habit Start Date Stop Date Quantity Comments Source Exposure to Not sure [facility] SARS-CoV-2 (event) Medica l Branch Tobacco use and 2021-02-21 2021-02-21 Never used [facility] exposure 00:00:00 00:00:00 [facility] Sex Assigned At [birth year] [facility] 00:00:00 00:00:00 [facility] Smoking Status Start Date Stop Date Source Unknown if ever smoked [facility] Never smoker [facility] Medications Ordered Filled Start Stop Current Ordering Indication Dosage Frequency Signature Comments Components Source Medication Medication Date Date Medication? Clinician (SIG) Name Name sotaloL 160 2020- Yes 120mg Take 120 U nivers mg tablet 6-16 mg by ity of 17:17: mouth [place] 27 daily. Medical Branch olmesartan Yes 20mg Take 20 mg U nivers 20 mg 6-16 by mouth ity of tablet 17:17: daily. [address] atorvastati Yes 40mg Take 40 mg Univers n 40 mg 6-16 by mouth ity of tablet 17:17: at [place] [address] bedtime. Medical Branch rivaroxaban Yes Take by Un laron (XARELTO) 6-16 mouth. ity of 20 mg 17:17: [address] tamsulosin Yes Take by Uni vers 0.4 mg 24 6-16 mouth ity of hr capsule 17:17: daily. [address] finasteride 0 Yes 5mg Take 5 mg U nivers 5 mg tablet 6-16 by mouth ity of 17:17: daily. [address] sotaloL 160 Yes 120mg Take 120 U nivers mg tablet 6-16 mg by ity of 17:17: mouth [place] [address] daily. [facility] Branch olmesartan Yes 20mg Take 20 mg U nivers 20 mg 6-16 by mouth ity of tablet 17:17: daily. [address] atorvastati Yes 40mg Take 40 mg Univers n 40 mg 6-16 by mouth ity of tablet 17:17: at [place] [address] bedtime. Medical Branch rivaroxaban Yes Take by Un laron (XARELTO) 6-16 mouth. ity of 20 mg 17:17: [address] tamsulosin Yes Take by Uni vers 0.4 mg 24 6-16 mouth ity of hr capsule 17:17: daily. [address] finasteride Yes 5mg Take 5 mg U nivers 5 mg tablet 6-16 by mouth ity of 17:17: daily. [address] water for 0 Yes PRN, Univers irrigation 6-16 Starting ity o f irrigation 15:30: Wed [place] solution 00 02/21/21 at [facility] [place] [address] [place] [address] Until Discontinu ed, Routine, Intra-op sodium 0 Yes PRN, Univers chloride 6-16 Starting ity of (NS) 15:30: Wed [place] injection 00 02/21/21 at [facility] Until Discontinu ed, Routine, Intra-op neomycin-po 0 [...] Fri [place] injection 00 :27 02/21/21 at [facility] 1030, Branch Until Fri02/21/21 at 1417, Routine, Intra-op neomycin-po 2020- No PRN, Unive rs lymyxin-dex 02-21 Starting ity of amethasone 15:30: 19:17 [facility] [place] (MAXITROL) 00 :27 02/21/21 at [facility] ical 3.5 1030, Branch mg/g-10,000 Until Wed unit/g-0.1 02/21/21 at % 1417, ophthalmic Routine, ointment Intra-op Hyaluronida Yes PRN, Univer s se, Human 02-21 Starting ity of Recomb. 15:29: Fri [place] (HYLENEX) 00 02/21/21 at [facility] injection 1029, Branch Until Discontinu ed, Routine, Intra-op eye block Yes PRN, Univers syringe 11 02-21 Starting ity o f mL 15:29: Fri [place] 00 02/21/21 at [facility] 1029, Branch Until Discontinu ed, Intra-op Hyaluronida 2020- No PRN, Unive rs se, Human 02-21 Starting ity o f Recomb. 15:29: 19:17 [facility] [place] (HYLENEX) 00 :27 02/21/21 at [facility] injection 1029, Branch Until Fri02/21/21 at 1417, Routine, Intra-op eye block 2020- No PRN, Univers syringe 11 02-21 Starting ity of mL 15:29: 19:17 Fri [place] 00 :27 02/21/21 at Medical 1029, Branch Until Fri02/21/21 at 1417, Intra-op EPINEPHrine Yes PRN, Univer s 1:1,000 (1 02-21 Starting ity o f mg/mL) 14:36: Fri (ADRENALIN) 00 02/21/21 at Sd dical injection 0936, Branch Until Discontinu ed, Routine, Intra-op EPINEPHrine 2020- No PRN, Unive rs 1:1,000 (1 02-21 Starting ity of mg/mL) 14:36: 19:17 Fri (ADRENALIN) 00 :27 02/21/21 at Sd dical injection 0936, Branch Until Fri02/21/21 at 1417, Routine, Intra-op DUOVISC Yes PRN, Univers (DUOVISC 02-21 Starting ity of VISCO 14:35: Fri ELASTIC) 3 02/21/21 at [facility] ica %-4 %(0.5 35, Branch mL) 1 % Until (0.55 mL) Discontinu intraocular ed, injection Routine, Intra-op dexamethaso Yes PRN, Univer s ne 02-21 Starting ity of (DECADRON 14:35: Fri [place] PHOSPHATE) 00 02/21/21 at [facility] ical injection 0935, Branch Until Discontinu ed, Routine, Intra-op ceFAZolin Yes PRN, Univers (ANCEF) 02-21 Starting ity of injection 14:35: Fri [place] 02/21/21 at [facility] 0935, Branch Until Discontinu ed, RADHA, Intra-op carbachoL Yes PRN, Univers (MIOSTAT) 16 Starting ity of 0.01 % 14:35: Fri [place] intraocular 00 02/21/21 at Sd dical injection 0935, Branch Until Discontinu ed, Routine, Intra-op balanced Yes PRN, Univers salt irrig 02-21 Starting ity o f soln comb1 14:35: Fri (BSS PLUS) 00 02/21/21 at [facility] ical ophthalmic 0935, Branch solution Until 500 mL bag Discontinu ed, Routine, Intra-op DUOVISC 2020- No PRN, Univers (DUOVISC 02-21 Starting ity of VISCO 14:35: 19:17 [facility] ELASTIC) 3 00 :27 02/21/21 at [facility] %-4 %(0.5 0935, Branch mL) 1 % Until Wed (0.55 mL) 02/21/21 at intraocular 1417, injection Routine, Intra-op dexamethaso 2020- No PRN, Unive rs ne 02-21 Starting ity of (DECADRON 14:35: 19:17 [facility] PHOSPHATE) 00 :27 02/21/21 at [facility] ical injection 0935, Branch Until 02/21/21 at 1417, Routine, Intra-op ceFAZolin 2020- No PRN, Univers (ANCEF) 02-21 Starting ity of injection 14:35: 19:17 [facility] 00 :27 02/21/21 at Medical 0935, Branch Until 02/21/21 at 1417, RADHA, Intra-op carbachoL 2020- No PRN, Univers (MIOSTAT) 02-21 Starting ity o f 0.01 % 14:35: 19:17 [facility] intraocular 00 :27 21 at Sd dical injection 0935, Branch Until 02/21/21 at 1417, Routine, Intra-op balanced 2020- No PRN, Univers [place] 02-21 Starting ity of soln comb1 14:35: 19:17 [facility] (BSS PLUS) 00 :27 02/21/21 at [facility] ical ophthalmic 0935, Branch solution Until Wed 500 mL bag 02/21/21 at 1417, Routine, Intra-op mydriatic 2020- No .5mL 0.5 mL, Univ ers #5 02-21 Left Eye, ity of ophthalmic 13:45: 13:57 ONCE, 1 [place] solution 00 :00 dose, Wed Medica l 0.5 mL 02/21/21 at [place] syringe 0845, Routine, DSU Pre-op lactated 2020- [...] Pre-op lactated 2020- No 1000mL [facility] 02-21 mL/hr, ity of infusion 13:45: 13:57 1,000 mL, [place] as 1,000 mL 00 :00 IV Medical Infusion, Branch ONCE, 1 dose, 02/21/21 at 0845, Routine, DSU Pre-op Vital Signs Vital Name Observation Time Observation Value Comments Source Systolic blood 2021-02-21 17:06:00 144 mm[facility] Diastolic blood 2021-02-21 17:06:00 85 mm[facility]Hg[facility] Heart rate 2021-02-21 17:06:00 63 /min [facility] Respiratory rate 2021-02-21 17:06:00 12 /min [facility] Oxygen saturation in 2021-02-21 17:06:00 99 /min [facility] Arterial blood by [facility] Pulse oximetry [place] Body temperature 2021-02-21 16:50:00 36.83 Karine [facility] BMI 2021-02-14 18:20:00 29.18 kg/m2 [facility] Body height 2021-02-14 18:20:00 182.9 cm [facility] Body weight 2021-02-14 18:20:00 97.6 kg [facility] Systolic blood 2021-02-21 13:45:00 174 mm[Hg] Univer sity [facility] Diastolic blood 2021-02-21 13:45:00 91 mm[facility]Hg[facility] pressure [facility] Heart rate 2021-02-21 13:45:00 66 /min [facility] Body temperature 2021-02-21 13:45:[address] [facility] rate 2021-02-21 13:45:00 19 /min [facility] Oxygen saturation in 2021-02-21 13:45:00 97 /min [facility] Arterial blood by [facility] Pulse oximetry [place] Body height 2021-02-14 18:20:00 182.9 cm [facility] Body weight 2021-02-14 18:20:00 97.6 kg [facility] BMI 2021-02-14 18:20:00 29.18 kg/m2 [facility] Procedures Procedure Date / Time Performing Source Performed Clinician PHACOEMULSIFICATION OF 2021-02-21 Sanchez Pereira [facility] CATARACT WITH INTRAOCULAR 16:11:00 [facility] LENS IMPLANT ASSIGNMENT OF BENEFITS 2021-02-14 Doctor Unassigned, [facility] 16:16:08 [place] [facility] Encounters Start End Encounter Admission Attending Care Care Encounter Source Date/Time Date/Time Type Type Clinicians Facility Department ID 2021-07-09 [id number] Univers 00:07:48 [facility] 2021-02-21 2021-02-21 [facility] [id number] Univers 08:40:00 12:17:00 Encounter Sanchez Dobbs [id number] it[place] of [place] [id number] [id number] [facility] 071 Branch 2021-02-21 2021-02-[address] [facility] [id number] Univers 10:58:00 11:38:00 Sanchez Dobbs [id number] [facility] [id number] [place] [id number] [facility] 020 Branch 2021-02-20 2021-02-[address] [facility] [id number] Univers 09:15:00 09:15:00 SANCHEZ calix [facility] 2021-02-14 2021-02-14 Rubber Mixer Shivam, Laurent Lab Main [facility] [id number] Univers 11:14:10 11:29:10 Visit Sanchez Pereira Leny Dobbs [id number] ity [place] [id number] [place] [id number] S[place] dical [address] 2021-02-14 2021-02-[address] [facility] [id number] Univers 10:45:00 10:45:00 SANCHEZ calix [facility] 2021-02-14 2021-02-14 Orders Doctor RADHA [id number] Univers 00:00:00 00:00:00 Only Unassigned, RACHEL [id number] ity of [place] [facility] [id number] [place] as [phone] [place] [address] Branch Results This patient has no known results.
[2022-01-04 11:16] LABS: Hematocrit 32.9 % (39.6-49.0); Lymphocytes % 19.2 % (15.3-44.8); MPV 7.2 fL (7.6-11.3); RBC Red Blood Cell Count 3.68 M/uL (4.33-5.43)
[2022-01-04 11:28] LABS: BUN Blood Urea Nitrogen 17 mg/dL (7-18); Bicarbonate 29 mmol/L (21-32); Glucose Level 111 mg/dL (74-106); Potassium 4.9 mmol/L (3.5-5.1); Sodium Level 137 mmol/L (136-145); Troponin High Sensitivity 4.8 pg/mL (<58.9)
--- NOTE | 2022-01-04 12:23 | RAD REPORT ---
EXAM DESCRIPTION: CT - Chest For Pe Angio - 01/04/2022 11:52 am CLINICAL HISTORY: Chest pain. chest pain COMPARISON: Abdomen 1 View (KUB) dated 12/26/2021; Abdomen Pelvis Wo Contrast dated 12/26/2021 TECHNIQUE: CT angiogram of the pulmonary arteries was performed with MIP. All CT scans are performed using dose optimization technique as appropriate and may include automated exposure control or mA/KV adjustment according to patient size. FINDINGS: No evidence of pulmonary thromboembolism. No acute aortic finding demonstrated. The lungs are clear. No significant pericardial or pleural fluid. There are sclerotic bony lesions seen in the thoracic spine and several ribs. IMPRESSION: No evidence of pulmonary thromboembolism. 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 Nuclear medicine bone scan is recommended for followup.
--- NOTE | 2022-01-04 12:43 | RAD REPORT ---
EXAM DESCRIPTION: Jonathan Single View01/04/2022 12:36 pm CLINICAL HISTORY: Chest pain COMPARISON: 09/2021 FINDINGS: The lungs appear clear of acute infiltrate. The heart is borderline enlarged IMPRESSION: No acute abnormalities displayed
--- NOTE | 2022-01-04 13:53 | ER ---
Nurse's Notes [facility] Name: Antonio Castillo Jr Age: 81 yrs Sex: Male : 1940 Arrival Date: 01/04/2022 Time: 10:36 Bed 26 Private MD: Abdiel Barrett V Diagnosis: Chest pain, unspecified Presentation: 01/04 10:44 Chief complaint: Patient states: "I was at Dr. Barrett's office and became short of ab2 breath and having chest pain.". Coronavirus screen: Vaccine status: Patient reports receiving the 2nd dose of the covid vaccine. Client denies travel out of the [place] in the last 14 days. At this time, the client does not indicate any symptoms associated with coronavirus-19. Ebola Screen: Patient negative for fever greater than or equal to 101.5 degrees Fahrenheit, and additional compatible Ebola Virus Disease symptoms Patient denies exposure to infectious person. Patient denies travel to an Ebola-affected area in the 21 days before illness onset. No symptoms or risks identified at this time. Initial Sepsis Screen: Does the patient meet any 2 criteria? No. Patient's initial sepsis screen is negative. Does the patient have a suspected source of infection? No. Patient's initial sepsis screen is negative. Risk Assessment: Do you want to hurt yourself or someone else? Patient reports no desire to harm self or others. Onset of symptoms is unknown. 10:44 Method Of Arrival: Ambulatory ab2 10:44 Acuity: KULWINDER 3 ab2 Triage Assessment: 10:49 General: Behavior is calm, cooperative, appropriate for age. ab2 Historical: - Allergies: 10:46 No Known Allergies; ab2 - PMHx: 10:46 Atrial Fib; cardioversion; Hypertension; sebaceous cyst removal; Bladder cancer; ab2 - PSHx: 10:46 Stented artery; ab2 - Immunization history:: Adult Immunizations up to date. - Social history:: Smoking status: Patient denies any tobacco usage or history of. Screenin:48 Abuse screen: Denies threats or abuse. Denies injuries from another. Nutritional ab2 screening: No deficits noted. Tuberculosis screening: No symptoms or risk factors identified. Fall Risk None identified. Assessment: 10:47 General: Appears in no apparent distress. comfortable. Pain: Complains of pain in chest ab2 Pain does not radiate. Pain Quality of pain is described as crushing, Pain began 1 hour ago. Neuro: Level of Consciousness is awake, alert, obeys commands, Oriented to person, place, time, situation, Appropriate for age Keypuncher are equal bilaterally Moves all extremities. Gait is steady, Speech is normal, Facial symmetry appears normal, Intact. Cardiovascular: Reports chest pain, shortness of breath, Heart tones S1 S2 present Patient's skin is warm and dry. Respiratory: Reports shortness of breath Airway is patent Respiratory effort is even, unlabored, Respiratory pattern is regular, symmetrical, Breath sounds are clear bilaterally. GI: No deficits noted. No signs and/or symptoms were reported involving the gastrointestinal system. Abdomen is round non-distended, Bowel sounds present X 4 quads. : No deficits noted. No signs and/or symptoms were reported regarding the genitourinary system. EENT: No deficits noted. No signs and/or symptoms were reported regarding the EENT system. Derm: Skin is intact, is healthy with good turgor, Skin is pink, warm \\T\\ dry. 11:40 Reassessment: Pt taken to CT via stretcher with pre sales technical consultant. ab2 12:18 Reassessment: No changes from previously documented assessment. Patient and/or family bp updated on plan of care and expected duration. Pain level reassessed. PT RETURNED FROM CT. XRAY COMPLETED. 13:09 Reassessment: No changes from previously documented assessment. Patient and/or family bp updated on plan of care and expected duration. Pain level reassessed. Vital Signs: 10:44 BP 164 / 83; Pulse 68; Resp 18; Pulse Ox 100% on R/A; Weight 97.52 kg; Height 6 ft. 0 ab2 in. (182.88 cm); Pain 0/10; 12:16 BP 143 / 78; Pulse 65; Resp 17; Pulse Ox 100% ; bp 13:08 BP 139 / 77; Pulse 66; Resp 16; Pulse Ox 100% ; bp 10:44 Body Mass Index 29.16 (97.52 kg, 182.88 cm) ab2 ED Course: 10:36 Patient arrived in ED. am2 10:36 Abdiel Barrett MD is Private Physician. am2 10:37 Eric Corbett MD is Attending Physician. kdr 10:38 Renny Schmid is Primary Nurse. ab2 10:46 Triage completed. ab2 10:48 Arm band placed on right wrist. ab2 10:48 No provider procedures requiring assistance completed. Patient maintains SpO2 ab2 saturation greater than 95% on room air. 10:49 Patient has correct armband on for positive identification. Bed in low position. Call ab2 light in reach. Side rails up X2. equipment monitor phototypesetting on. Pulse ox on. NIBP on. 10:56 Inserted saline lock: 20 gauge in right antecubital area, using aseptic technique. tp1 Blood collected. 11:00 Troponin HS Sent. ab2 11:00 D-Dimer Sent. ab2 11:01 CBC with Diff Sent. ab2 11:01 Basic Metabolic Panel Sent. ab2 11:53 CT Chest For PE Angio In Process Unspecified. EDMS 12:16 XRAY Chest (1 view) Sent. bp 12:38 XRAY Chest (1 view) In Process Unspecified. EDMS 13:51 Abdiel Barrett MD is Referral Physician. kdr 14:03 IV discontinued. jiménez Administered Medications: No medications were administered Outcome: 13:52 Discharge ordered by . kdr 14:03 Discharged to home jiménez 14:03 Condition: good 14:03 Discharge instructions given to patient. 14:04 Patient left the ED. jiménez Signatures: Dispatcher [employer] EDMS Eric Corbett MD MD [facility] Camelia Das am2 Jake Reilly, RN RN Laura Beckman tp1 MayraStagerJennifer RN RN Renny Schmid ab2
--- NOTE | 2022-01-04 13:54 | EDPHYS ---
Physician Documentation [facility] Name: Antonio Castillo Jr Age: 81 yrs Sex: Male : 1940 Arrival Date: 01/04/2022 Time: 10:36 Bed 26 Private MD: Abdiel Barrett V ED Physician Eric Corbett HPI: 01/04 18:41 This 81 yrs old Male presents to ER via Ambulatory with complaints of Chest Pain. kdr 18:41 The patient or guardian reports chest pain that is located primarily in the Patient was kdr at Dr. Barrett's office when he started to have chest pain and shortness of breath. Dr. Barrett called the ED and informed us that the patient will be coming over. He requested that we pursue a possible chest pain versus PE work-up. That was executed upon arrival of the patient. Patient was mildly anxious on exam initially but otherwise appeared stable without any acute or toxic appearance. Onset: suddenly, just prior to arrival. The pain does not radiate. Associated signs and symptoms: Pertinent positives: palpitations, shortness of breath. The chest pain is described as aching, dull. Duration: The patient or guardian reports a single episode, that is now resolved. Severity of pain: At its worst the pain was mild in the emergency department the pain has improved mildly. The patient has not experienced similar symptoms in the past. The patient has been recently seen by a physician: the patient's primary care provider. Patient has a history of atrial fibrillation. Currently he is in normal sinus rhythm with a normal EKG.. Historical: - Allergies: 10:46 No Known Allergies; ab2 - PMHx: 10:46 Atrial Fib; cardioversion; Hypertension; sebaceous cyst removal; Bladder cancer; ab2 - PSHx: 10:46 Stented artery; ab2 - Immunization history:: Adult Immunizations up to date. - Social history:: Smoking status: Patient denies any tobacco usage or history of. ROS: 18:41 Constitutional: Negative for fever, chills, and weight loss, Eyes: Negative for injury, kdr pain, redness, and discharge, ENT: Negative for injury, pain, and discharge, Neck: Negative for injury, pain, and swelling, Abdomen/GI: Negative for abdominal pain, nausea, vomiting, diarrhea, and constipation, Back: Negative for injury and pain, : Negative for injury, bleeding, discharge, and swelling, MS/Extremity: Negative for injury and deformity, Skin: Negative for injury, rash, and discoloration, Neuro: Negative for headache, weakness, numbness, tingling, and seizure activity. Psych: Negative for depression, anxiety, suicide ideation, homicidal ideation, and hallucinations, Allergy/Immunology: Negative for hives, rash, and allergies, Endocrine: Negative for neck swelling, polydipsia, polyuria, polyphagia, and marked weight changes, Hematologic/Lymphatic: Negative for swollen nodes, abnormal bleeding, and unusual bruising. 18:41 Cardiovascular: Positive for chest pain, palpitations, Negative for edema, orthopnea. 18:41 Respiratory: Positive for cough, dyspnea on exertion, shortness of breath, on exertion. Negative for Exam: 10:57 ECG was reviewed by the Attending Physician. kdr 18:41 Constitutional: This is a well developed, well nourished patient who is awake, alert, kdr and in no acute distress. Head/Face: Normocephalic, atraumatic. Eyes: Pupils equal round and reactive to light, extra-ocular motions intact. Lids and lashes normal. Conjunctiva and sclera are non-icteric and not injected. Cornea within normal limits. Periorbital areas with no swelling, redness, or edema. ENT: Nares patent. No nasal discharge, no septal abnormalities noted. Tympanic membranes are normal and external auditory canals are clear. Oropharynx with no redness, swelling, or masses, exudates, or evidence of obstruction, uvula midline. Mucous membranes moist. Neck: Trachea midline, no thyromegaly or masses palpated, and no cervical lymphadenopathy. Supple, full range of motion without nuchal rigidity, or vertebral point tenderness. No Meningismus. Chest/axilla: Normal chest wall appearance and motion. Nontender with no deformity. No lesions are appreciated. Cardiovascular: Regular rate and rhythm with a normal S1 and S2. No gallops, murmurs, or rubs. Normal PMI, no JVD. No pulse deficits. Respiratory: Lungs have equal breath sounds bilaterally, clear to auscultation and percussion. No rales, rhonchi or wheezes noted. No increased work of breathing, no retractions or nasal flaring. Abdomen/GI: Soft, non-tender, with normal bowel sounds. No distension or tympany. No guarding or rebound. No evidence of tenderness throughout. Back: No spinal tenderness. No costovertebral tenderness. Full range of motion. Skin: Warm, dry with normal turgor. Normal color with no rashes, no lesions, and no evidence of cellulitis. MS/ Extremity: Pulses equal, no cyanosis. Neurovascular intact. Full, normal range of motion. Neuro: Awake and alert, GCS 15, oriented to person, place, time, and situation. Cranial nerves II-XII grossly intact. Motor strength 5/5 in all extremities. Sensory grossly intact. Cerebellar exam normal. Normal gait. Psych: Awake, alert, with orientation to person, place and time. Behavior, mood, and affect are within normal limits. Vital Signs: 10:44 BP 164 / 83; Pulse 68; Resp 18; Pulse Ox 100% on R/A; Weight 97.52 kg; Height 6 ft. 0 ab2 in. (182.88 cm); Pain 0/10; 12:16 BP 143 / 78; Pulse 65; Resp 17; Pulse Ox 100% ; bp 13:08 BP 139 / 77; Pulse 66; Resp 16; Pulse Ox 100% ; bp 10:44 Body Mass Index 29.16 (97.52 kg, 182.88 cm) ab2 MDM: 13:52 Patient medically screened. kdr 18:41 Data reviewed: vital signs, nurses notes, old medical records, EKG. [facility] 01/04 10:38 Order name: Basic Metabolic Panel; Complete Time: 12: [facility] 01/04 10:38 Order name: CBC with Diff; Complete Time: 12: [facility] 01/04 10:38 Order name: D-Dimer; Complete Time: 12: [facility] 01/04 10:38 Order name: Troponin HS; Complete Time: 12: [facility] 01/04 10:38 Order name: XRAY Chest (1 view); Complete Time: 13: [facility] 01/04 11:42 Order name: SARS-COV-2 RT PCR (Document "Date of Onset" if Symptomatic); Complete Time: eb :01/04 10:38 Order name: EKG; Complete Time: 10:58 [facility] 01/04 10:38 Order name: Cardiac monitoring; Complete Time: 10:49 [facility] 01/04 10:38 Order name: EKG - Nurse/Tech; Complete Time: : [facility] 01/04 10:38 Order name: IV Saline Lock; Complete Time: [facility] 01/04 10:38 Order name: Labs collected and sent; Complete Time: [facility] 01/04 10:38 Order name: O2 Per Protocol; Complete Time: [facility] 01/04 10:38 Order name: O2 Sat Monitoring; Complete Time: [facility] 01/04 10:38 Order name: CT Chest For PE Angio kdr EC: Rate is 68 beats/min. Rhythm is regular, Normal Sinus Rhythm with No ectopy. [place] kdr interval is normal. QRS interval is normal. QT interval is normal. Clinical impression: Normal ECG. Administered Medications: No medications were administered Disposition Summary: 01/04/22 13:52 Discharge Ordered Location: Home kdr Condition: Stable kdr Diagnosis - Chest pain, unspecified kdr Followup: kdr - With: Abdiel Barrett MD - When: 2 - 3 days - Reason: If symptoms return, Further diagnostic work-up, Recheck today's complaints, Continuance of care, Re-evaluation by your physician Discharge Instructions: - Discharge Summary Sheet kdr - Shortness of Breath, Adult, [id number] kdr - Nonspecific Chest Pain, Adult, [id number] kdr Forms: - Medication Reconciliation Form kdr - Thank You Letter kdr Signatures: Dispatcher [employer] Eric Guo MD MD kdr Renny Schmid
[2022-01-04 14:16] VITALS: O2SAT 100
[2022-01-04 14:19] VITALS: BP 139/77
--- NOTE | 2022-01-05 09:46 | EKG ---
Test Date: 2022-01-04 Test Time: 10:50:26 Science Job Titles: PATEL MEASUREMENT RESULTS: Intervals: Rate: 68 ND: 146 QRSD: 74 QT: 428 QTc: 455 Burke: P: 31 ND: 146 QRS: 18 T: 21 INTERPRETIVE STATEMENTS: Normal sinus rhythm Normal ECG Compared to ECG 05/08/2021 08:41:15 No significant changes Electronically Signed On 01-05-22 09:44:06 CDT by Sandor Gan
== END 2022-01-04 14:04 | disposition home or self-care (01) ==
LOC: ER 10:35
DX: R07.9 Chest pain, unspecified (principal); R00.2 Palpitations; I10 Essential (primary) hypertension; I48.91 Unspecified atrial fibrillation; Z20.822 Contact with and (suspected) exposure to COVID-19; Z95.818 Presence of other cardiac implants and grafts; Z85.51 Personal history of malignant neoplasm of bladder
CPT/HCPCS: 93005; 85025; 80048; 36415; 85379; 84484; 71275; 71045; 99285; U0003; Q9967

== ENCOUNTER 2022-05-06 09:00 | Inpatient (IN) | payer OTHER ==
--- OUTSIDE RECORDS SUMMARY | 2022-05-06 09:04 | XMS REPORT | Continuity of Care Document ---
:1940 Author Organization [facility] t Address [address] [place] [address] [address]. [address] [place] [address] Care Team Providers Name Role Phone Abdiel Barrett Attending Clinician Unavailable SANCHEZ PEREIRA Attending Clinician Unavailable Sanchez Pereira MD Attending Clinician Pob, Adc Lab Main Attending Clinician Unavailable Doctor Unassigned, [place] Attending Clinician Unavailable SANCHEZ PEREIRA Admitting Clinician Unavailable Sanchez Pereira MD Admitting Clinician Payers Payer Name Policy Type Policy Number Effective Date Expiration Date S norma [employer] MEDICARE ADV [id number] 2020 00:00:00 Problems This patient has no known problems. Allergies, Adverse Reactions, Alerts Allergy Allergy Status Severity Reaction(s) Onset Inactive Treating Comm ents Source Name Type Date Date Clinician NO KNOWN Drug Active Univers ALLERGIE [facility] Social History Social Habit Start Date Stop Date Quantity Comments Source Exposure to Not sure [facility] SARS-CoV-2 (event) Medica l Branch Tobacco use and 2021-02-21 2021-02-21 Never used [facility] exposure 00:00:00 00:00:00 [facility] Sex Ass[birth year] [facility] 00:00:00 00:00:00 [facility] Smoking Status Start Date Stop Date Source Unknown if ever smoked [facility] Never smoker [facility] Medications Ordered Filled Start Stop Current Ordering Indication Dosage Frequency Signature Comments Components Source Medication Medication Date Date Medication? Clinician (SIG) Name Name sotaloL 160 2020- Yes 120mg Take 120 U nivers mg tablet 6-16 mg by [facility] 17:17: mouth [place] [address] daily. Medical Branch olmesartan Yes 20mg Take 20 mg U nivers 20 mg 6-16 by mouth ity of tablet 17:17: daily. [address] atorvastati Yes 40mg Take 40 mg Univers n 40 mg 6-16 by mouth ity of tablet 17:17: at [place] [address] bedtime. Medical Branch rivaroxaban Yes Take by Uni vers (XARELTO) 6-16 mouth. ity of 20 mg 17:17: [address] Branch tamsulosin Yes Take by Univ ers 0.4 mg 24 6-16 mouth ity of hr capsule 17:17: daily. [address] finasteride Yes 5mg Take 5 mg U nivers 5 mg tablet 6-16 by mouth ity of 17:17: daily. [address] sotaloL 160 Yes 120mg Take 120 U nivers mg tablet 6-16 mg by ity of 17:17: mouth [place] [address] daily. [facility] Branch olmesartan Yes 20mg Take 20 mg U nivers 20 mg 6-16 by mouth ity of tablet 17:17: daily. [address] atorvastati Yes 40mg Take 40 mg Univers n 40 mg 6-16 by mouth ity of tablet 17:17: at [place] [address] bedtime. Medical Branch rivaroxaban Yes Take by Uni vers (XARELTO) 6-16 mouth. ity of 20 mg 17:17: [address] tamsulosin Yes Take by Univ ers 0.4 mg 24 6-16 mouth ity of hr capsule 17:17: daily. [address] finasteride 0 Yes 5mg Take 5 mg U nivers 5 mg tablet 6-16 by mouth ity of 17:17: daily. [address] water for 0 Yes PRN, Univers irrigation 6-16 Starting ity o f irrigation 15:30: Fri [place] solution 00 02/21/21 at Medic al 1030, Branch Until Discontinu ed, Routine, Intra-op sodium 0 Yes PRN, Univers chloride 6-16 Starting ity of (NS) 15:30: Wed [place] injection 00 02/21/21 at [facility] 1030, Branch Until Discontinu ed, Routine, Intra-op neomycin-po Yes PRN, Univer s lymyxin-dex -16 Starting ity of amethasone 15:30: Fri [place] (MAXITROL) 00 02/21/21 at [facility] ical 3.5 1030, Branch mg/g-10,000 Until unit/g-0.1 [...] Fri [place] injection 00 :27 02/21/21 at [facility] 1030, Branch Until Fri02/21/21 at 1417, Routine, Intra-op neomycin-po 2020- No [facility]N, [facility] lymyx[facility]dex 02-21 Starting ity of amethasone 15:30: 19:17 Fri [place] (MAXITROL) 00 :27 02/21/21 at [facility] 3.5 1030, Branch mg/g-10,000 Until Wed unit/g-0.1 02/21/21 at % 1417, ophthalmic Routine, ointment Intra-op Hyaluronida Yes PRN, Univer s se, Human 02-21 Starting ity of Recomb. 15:29: Fri [place] (HYLENEX) 00 02/21/21 at [facility] injection 1029, Branch Until Discontinu ed, Routine, Intra-op eye block Yes PRN, Univers syringe 11 02-21 Starting ity o f mL 15:29: Fri [place] 00 02/21/21 at [facility] 1029, Branch Until Discontinu ed, Intra-op Hyaluronida 2020- No PRN, Unive rs se, Human 02-21 Starting ity o f Recomb. 15:29: 19:17 Wed [place] (HYLENEX) 00 :27 02/21/21 at [facility] in[place] injection 1029, Branch Until Fri02/21/21 at 1417, Routine, Intra-op eye block 2020-0 2020- No PRN, Univers syringe 11 02-21 Starting ity of mL 15:29: 19:17 Fri [place] 00 :27 02/21/21 at Medical 1029, Branch Until Fri02/21/21 at 1417, Intra-op EPINEPHrine 0 Yes PRN, Univer s 1:1,000 (1 02-21 Starting ity o f mg/mL) 14:36: Fri (ADRENALIN) 00 02/21/21 at Ga dical injection 0936, Branch Until Discontinu ed, Routine, Intra-op EPINEPHrine 2020- No PRN, Unive rs 1:1,000 (1 02-21 Starting ity of mg/mL) 14:36: 19:17 Fri (ADRENALIN) 00 :27 02/21/21 at Ga dical injection 0936, Branch Until Fri02/21/21 at 1417, Routine, Intra-op DUOVISC 0 Yes PRN, Univers (DUOVISC 02-21 Starting ity of VISCO 14:35: Fri ELASTIC) 3 00 02/21/21 at [facility] ical %-4 %(0.5 0935, Branch mL) 1 % Until (0.55 mL) Discontinu intraocular ed, injection Routine, Intra-op dexamethaso Yes PRN, Univer s ne 16 Starting ity of (DECADRON 14:35: Fri [place] PHOSPHATE) 02/21/21 at Med ical injection 0935, Branch Until Discontinu ed, Routine, Intra-op ceFAZolin Yes PRN, Univers (ANCEF) 16 Starting ity of injection 14:35: Fri [place] 00 02/21/21 at [facility] 0935, Branch Until Discontinu ed, RADHA, Intra-op carbachoL 0 Yes PRN, Univers (MIOSTAT) 16 Starting ity of 0.01 % 14:35: Wed [place] intraocular 00 02/21/21 at Ga dical injection 0935, Branch Until Discontinu ed, Routine, Intra-op balanced 2021-0 Yes PRN, Univers salt irrig 6-16 Starting ity o f soln comb1 14:35: Fri [place] (BSS PLUS) 00 02/21/21 at [facility] ical ophthalmic 0935, Branch solution Until 500 mL bag Discontinu ed, Routine, Intra-op DUOVISC 2020- No PRN, Univers (DUOVISC 02-21 Starting ity of VISCO 14:35: 19:17 Fri [place] ELASTIC) 3 00 :27 02/21/21 at [facility] %-4 %(0.5 0935, Branch mL) 1 % Until Wed (0.55 mL) 02/21/21 at intraocular 1417, injection Routine, Intra-op dexamethaso 2020- No PRN, Unive rs ne 02-21 Starting ity of (DECADRON 14:35: 19:17 Fri [place] PHOSPHATE) 00 :27 02/21/21 at [facility] ica injection 0935, Branch Until Fri02/21/21 at 1417, Routine, Intra-op ceFAZolin 2020- No PRN, Univers (ANCEF) 02-21 Starting ity of injection 14:35: 19:17 [facility] [place] 00 :27 02/21/21 at [facility] 09, Branch Until Fri02/21/21 at 1417, RADHA, Intra-op carbachoL 2020- No PRN, Univers (MIOSTAT) 02-21 Starting ity o f 0.01 % 14:35: 19:17 Fri [place] intraocular 00 :27 02/21/21 at Ga dical injection 0935, Branch Until 02/21/21 at 1417, Routine, Intra-op balanced 2020- No PRN, Univers salt irrig 02-21 Starting ity of soln comb1 14:35: 19:17 Fri [place] (BSS PLUS) 00 :27 02/21/21 at [facility] ical ophthalmic 0935, Branch solution Until Fri 500 mL bag 02/21/21 at 1417, Routine, [...] Source Systolic blood 2021-02-21 17:06:00 144 mm[Hg] [facility] sity of pressure [facility] [place] [facility] Diastolic blood 2021-02-21 17:06:00 85 mm[Hg] [facility] of pressure [facility] [place] [facility] Heart rate 2021-02-21 17:06:00 63 /min [facility] Respiratory rate 2021-02-21 17:06:00 12 /min [facility] Oxygen saturation in 2021-02-21 17:06:00 99 /min [facility] Arterial blood by [facility] Pulse oximetry [place] Body temperature 2021-02-21 16:50:00 36.83 [facility]ine [facility] Body height 2021-02-14 18:20:00 182.9 cm [facility] Body weight 2021-02-14 18:20:00 97.6 kg [facility] BMI 2021-02-14 18:20:00 29.18 kg/m2 [facility] Diastolic blood 2021-02-21 13:45:00 91 mm[Hg] [facility] pressure [facility] [place] [facility] Heart rate 2021-02-21 13:45:00 66 /min [facility] Body temperature 2021-02-21 13:45:00 36.56 Karine [facility] Res[facility] rate 2021-02-21 13:45:00 19 /min [facility] Oxygen saturation in 2021-02-21 13:45:00 97 /min [facility] Arterial blood by [facility] Pulse oximetry [place] Systolic blood 2021-02-21 13:45:00 174 mm[Hg] [facility] Body height 2021-02-14 18:20:00 182.9 cm [facility] Body weight 2021-02-14 18:20:00 97.6 kg [facility] BMI 2021-02-14 18:20:00 29.18 kg/m2 [facility] Procedures Procedure Date / Time Performing Source Performed Clinician PHACOEMULSIFICATION OF 2021-02-21 Sanchez Pereira [facility] CATARACT WITH INTRAOCULAR 16:11:00 [facility] LENS IMPLANT ASSIGNMENT OF BENEFITS 2021-02-14 Doctor Unassigned, [facility] 16:16:08 [place] [facility] Encounters Start End Encounter Admission Attending Care Care Encounter Source Date/Time Date/Time Type Type Clinicians Facility Department ID 2022-04-24 Outpatient Nena, STKAELLC STLMLC [id number] Common 15:42:03 Abdiel [facility] 2021-07-09 Outpatient CLAUDE JOSHI OPH [id number] Univers 00:07:48 [facility] 2022-04-29 2022-04-29 ambulatory STLMLC STLMLC [id number] Common 00:00:00 00:00:00 [facility] 2022-04-27 2022-04-27 ambulatory STLMLC STLMLC [id number] Common 00:00:00 00:00:00 [facility] 2022-04-24 2022-04-24 ambulatory STLMLC STLMLC [id number] Common 00:00:00 00:00:00 [facility] 2021-02-21 2021-02-21 Hospital [facility] [id number] Univers 08:40:00 12:17:00 Encounter Sanchez Dobbs [id number] [id number] [id number] [facility] 071 Branch 2021-02-21 2021-02-21 Surgery [facility] [id number] Univers 10:58:00 11:38:00 Sanchez Dobbs [id number] [id number] [id number] [facility] 020 Branch 2021-02-20 2021-02-20 [facility] [id number] Univers 09:15:00 09:15:00 SANCHEZ calix [facility] 2021-02-14 2021-02-14 [employer] Instructor Shivam, Adc Lab Main [facility] [id number] Univers 11:14:10 11:29:10 Visit Sanchez Pereira [id number] 0 [id number] [id number] [place]ical [facility] 353 [facility] 2021-02-14 2021-02-14 [facility] [id number] Univers 10:45:00 10:45:00 SANCHEZ calix [facility] 2021-02-14 2021-02-14 Orders Doctor RADHA [id number] Univers 00:00:00 00:00:00 Only Unassigned, RACHEL [id number] ity of [place] [facility] [id number] [place] as [id number] [place] [address] Branch Results This patient has no known results.
[2022-05-06 09:27] LABS: Absolute Lymphocytes (CBC) 0.7 K/uL (0.7-4.9); Hematocrit 32.8 % (39.6-49.0); Lymphocytes % 6.5 % (15.3-44.8); MCV 92.1 fL (80-100); MPV 7.2 fL (7.6-11.3); RBC Red Blood Cell Count 3.56 M/uL (4.33-5.43)
[2022-05-06] MEDS ORDERED: FENTANYL CITR 100 MCG/2 ML ONE ×2 (09:28→11:35)
[2022-05-06 09:41] LABS: Protime INR 1.33
[2022-05-06] MEDS ORDERED: NA CHLORIDE 0.9% 500 ML ONE (09:47)
[2022-05-06 09:50] LABS: Albumin 1.9 g/dL (3.4-5.0); Bilirubin Direct 1.1 mg/dL (0-0.2); Bilirubin Total 1.6 mg/dL (0.2-1.0); Magnesium 2.1 mg/dL (1.8-2.4); Potassium 4.3 mmol/L (3.5-5.1); Protein, Total 5.5 g/dL (6.4-8.2); Troponin High Sensitivity 12.3 pg/mL (<58.9)
[2022-05-06 10:19] LABS: Urine Blood Trace-intact (Negative); Urine Glucose Negative (Negative); Urine Protein 1+ (Negative); Urine Specific Gravity 1.015 (1.005-1.030); Urine pH 5.5 (5.0-7.0)
--- NOTE | 2022-05-06 10:41 | RAD REPORT ---
EXAM DESCRIPTION: CTAbdomen Pelvis W Contrast - 05/06/2022 10:26 am CLINICAL HISTORY: abdominal pain COMPARISON: Abdomen Pelvis W Contrast dated 04/25/2022; Abdomen Pelvis W Contrast dated 06/11/2020 ; Bone Imaging Whole Body dated 04/25/2022; Chest For Pe Angio dated 01/04/2022 TECHNIQUE: CT of the abdomen and pelvis was performed with contrast. All CT scans are performed using dose optimization technique as appropriate and may include automated exposure control or mA/KV adjustment according to patient size. FINDINGS: Lower chest: Small pleural effusions. Coronary artery calcifications. Liver: Despite the short interval in follow-up, worsening metastatic disease is noted. For example, a lesion in portions of segment 8 and 4 measures 6 cm, previously 3.9 cm. Biliary: Gallbladder wall thickening and pericholecystic edema is new prior. Stomach: No significant focal abnormality. Duodenum: No significant focal abnormality. Pancreas: No significant abnormality. Spleen: No significant abnormality. Adrenal: No suspicious lesions. Kidney/ureter: No hydronephrosis. Left nephrolithiasis Right renal cyst. Retroperitoneum: No retroperitoneal adenopathy. Vascular: Atherosclerosis Bowel: Diverticulosis without diverticulitis.. Peritoneum: Small volume of ascites. Upper abdominal lymphadenopathy. Bladder: Taylor catheter in the bladder. Reproductive: No adnexal masses. Bones: Numerous sclerotic osseous lesions are again identified in the spine, ribs, and pelvis. Degene rative changes are present spine. . Other: n/a IMPRESSION: 1. Increased gallbladder wall thickening is nonspecific. This could be related to underl yenni fluid status or hypoproteinemia as there are also new pleural effusions and ascites. Correlate w ith LFTs. 2. Despite the short interval, progressing metastatic disease with enlarging liver lesions. 3. Fairly widespread osseous metastatic disease is similar to 04/25/2022. No acute fractures identifi ed, however.
[2022-05-06 10:45] LABS: Urine Bacteria 20-50 /HPF (<20)
--- NOTE | 2022-05-06 11:30 | RAD REPORT ---
EXAM DESCRIPTION: RAD - Chest Single View - 05/06/2022 11:24 am CLINICAL HISTORY: ABDOMINAL DISTENTION COMPARISON: Chest Single View dated 01/04/2022; Abdomen 1 View (KUB) dated 12/26/2021; Chest Pa And La t (2 Views) dated 10/03/2021; Chest Pa And Lat (2 Views) dated 05/04/2021; Abdomen Pelvis W Contrast dated 05/06/2022 FINDINGS: Lines: None. Lungs: No evidence of edema or pneumonia. Pleural: No significant pleural effusions or pneumothorax. Cardiac: The heart size is within normal limits. Mediastinum: Within normal limits. Bones: No acute fractures. Other: None IMPRESSION: No acute cardiopulmonary disease.
[2022-05-06] MEDS ORDERED: SOTALOL HCL 80 MG TAB ONE (11:50)
--- NOTE | 2022-05-06 12:05 | ER ---
Nurse's Notes [facility] Name: Antonio Castillo Jr Age: 81 yrs Sex: Male : 1940 Arrival Date: 05/06/2022 Time: 09:03 Bed 6 Private MD: Diagnosis: Volume depletion, unspecified;Chronic atrial fibrillation;Abdominal pain, unspecified Presentation: 05/06 08:59 Chief complaint: EMS states: Toned out for increased pain due to cancer; stated ABD vg1 pain, lower back pain; pt has bladder and prostate cancer. 08:59 Coronavirus screen: Vaccine status: Patient reports receiving the 2nd dose of the covid vg1 vaccine. Client denies travel out of the [place] in the last 14 days. Ebola Screen: Patient denies exposure to infectious person. Patient denies travel to an Ebola-affected area in the 21 days before illness onset. Initial Sepsis Screen: Does the patient meet any 2 criteria? No. Patient's initial sepsis screen is negative. Does the patient have a suspected source of infection? No. Patient's initial sepsis screen is negative. Risk Assessment: Do you want to hurt yourself or someone else? Patient reports no desire to harm self or others. Onset of symptoms was May 06, 2022. 08:59 Method Of Arrival: EMS: [facility] 08:59 Acuity: KULWINDER 3 vg1 Triage Assessment: 09:10 General: Appears in no apparent distress. uncomfortable, Behavior is calm, cooperative. vg1 Pain: Complains of pain in suprapubic area and left upper quadrant Pain currently is 5 out of 10 on a pain scale. GI: Abdomen is round non-distended. : Reports burning with urination, pain in suprapubic area "my urine is dark brown". Historical: - Allergies: 09:10 No Known Allergies; vg1 - Home Meds: 09:33 atorvastatin 20 mg Oral tab 1 tab once daily [Active]; finasteride 5 mg Oral tab 1 tab vg1 once daily [Active]; sotalol 120 mg Oral tab 1 tab 2 times per day [Active]; tamsulosin 0.4 mg Oral cp24 1 cap once daily [Active]; paroxetine HCl 10 mg oral tab 1 tab once daily [Active]; olmesartan oral [Active]; Linzess 145 mcg oral cap 1 cap once daily [Active]; Prednisone Oral [Active]; abiraterone oral [Active]; Lupon Injection [Active]; Xgeva subcutaneous [Active]; - PMHx: 09:10 Atrial Fib; Bladder cancer; cardioversion; Hypertension; sebaceous cyst removal; vg1 Prostate Cancer; - PSHx: 09:33 Stented artery; vg1 - Immunization history:: Client reports receiving the 2nd dose of the Covid vaccine. - Social history:: Smoking status: Patient denies any tobacco usage or history of. Screenin:09 Abuse screen: Denies threats or abuse. Denies injuries from another. Nutritional tp1 screening: No deficits noted. Tuberculosis screening: No symptoms or risk factors identified. Fall Risk No fall in past 12 months (0 pts). No secondary diagnosis (0 pts). IV access (20 points). Ambulatory Aid- None/Bed Rest/Nurse Assist (0 pts). Gait- Normal/Bed Rest/Wheelchair (0 pts) Mental Status- Oriented to own ability (0 pts). Total Posada Fall Scale indicates No Risk (0-24 pts). Assessment: 09:09 General: Appears in no apparent distress. uncomfortable, Behavior is calm, cooperative. tp1 Pain: Complains of pain in left lower quadrant, left hip, back, and groin Pain currently is 5 out of 10 on a pain scale. Pain began today. Neuro: Level of Consciousness is awake, alert, obeys commands, Oriented to person, place, time, situation. Cardiovascular: Clubbing of nail beds is absent Patient's skin is warm and dry. Respiratory: Airway is patent Respiratory effort is even, unlabored. GI: Bowel sounds present X 4 quads. Abd is soft X 4 quads Abdomen is tender to palpation in left lower quadrant Reports nausea, Patient currently denies vomiting. : Reports. : Reports pain in suprapubic area with and with out urination trouble voiding. reports dark brown urine. EENT: No signs and/or symptoms were reported regarding the EENT system. Derm: Skin is pink, warm \\T\\ dry. Musculoskeletal: Circulation, motion, and sensation intact. 09:55 Reassessment: bladder scan performed, 307 mL urine. provider notified. tp1 10:20 Reassessment: escorted to CT via stretched by mining technician. tp1 10:22 Reassessment: Patient appears in no apparent distress at this time. Patient and/or tp1 family updated on plan of care and expected duration. Pain level reassessed. Patient is alert, oriented x 3, equal unlabored respirations, skin warm/dry/pink. continues to CO Hip pain. and son at bedside. 10:26 Reassessment: returned from CT. tp1 11:35 Reassessment: Patient appears in no apparent distress at this time. Patient and/or tp1 family updated on plan of care and expected duration. Pain level reassessed. Patient is alert, oriented x 3, equal unlabored respirations, skin warm/dry/pink. continues to CO back and hip pain rated 8/10. 11:49 Reassessment: provider notified of vitals. tp1 11:49 Cardiovascular: Rhythm is atrial fibrillation. tp1 12:01 Reassessment: ED provider at bedside. tp1 12:31 Reassessment: Patient appears in no apparent distress at this time. No changes from tp1 previously documented assessment. Patient and/or family updated on plan of care and expected duration. Pain level reassessed. Patient is alert, oriented x 3, equal unlabored respirations, skin warm/dry/pink. Pt placed in hospital bed with air mattress. 17:38 Reassessment: attempted to give report. tp1 Vital Signs: 08:59 BP 108 / 58; Pulse 103; Resp 17; Temp 100.2(O); Pulse Ox 97% on R/A; Weight 97.52 kg; vg1 Height 6 ft. 0 in. (182.88 cm); Pain 5/10; 09:30 BP 88 / 64 RA Supine (man/); tp1 09:31 BP 112 / 62 LA Supine (man/); tp1 10:46 BP 106 / 58 LA Supine (man/); Pulse 103; Resp 24; Pulse Ox 100% on R/A; tp1 11:29 Temp 99.3(O); vg1 11:49 BP 119 / 68 LA Sitting (man/); Pulse 144; Resp 23; Pulse Ox 99% on R/A; tp1 08:59 Body Mass Index 29.16 (97.52 kg, 182.88 cm) vg1 ED Course: 09:03 Patient arrived in ED. bd 09:07 Franky Carpenter PA is PHCP. cp 09:07 Chuck Nix MD is Attending Physician. cp 09:09 Laura Goldsmith, JARAD is Primary Nurse. tp1 09:10 Triage completed. vg1 09:10 Arm band placed on. vg1 09:12 Patient has correct armband on for positive identification. Bed in low position. Call vg1 light in reach. Side rails up X 1. 09:28 EKG done, by ED staff. tp1 09:35 Inserted saline lock: 20 gauge in right antecubital area, using aseptic technique. tp1 ,using aseptic technique. completed by ED staff Blood collected. 09:40 Client placed on continuous cardiac and pulse oximetry monitoring. NIBP monitoring tp1 applied. 10:09 Taylor cath inserted, using sterile technique, 16 Fr., by ms, balloon inflated, to tp1 gravity drainage, urine specimen collected. other 300 mL maxi colored urine. 10:27 CT Abd/Pelvis - IV Contrast Only In Process Unspecified. EDMS 11:26 XRAY Chest (1 view) In Process Unspecified. EDMS 11:36 EKG done, by ED staff. tp1 12:03 Abdiel aBrrett MD is Hospitalizing Provider. cp 14:34 No provider procedures requiring assistance completed. tp1 14:34 Patient admitted, IV remains in place. tp1 Administered Medications: 09:21 Drug: fentaNYL (PF) 25 mcg Route: IVP; Site: right antecubital; tp1 09:50 Follow up: Response: Pain is unchanged, physician notified tp1 09:40 Drug: NS 0.9% 500 ml Route: IV; Rate: bolus; Site: right antecubital; tp1 12:10 Follow up: Response: Blood pressure is unchanged; IV Status: Completed infusion; IV tp1 Intake: 500ml 11:28 Drug: fentaNYL (PF) 25 mcg Route: IVP; Site: right antecubital; tp1 11:50 Follow up: Response: Pain is unchanged, physician notified tp1 11:44 Drug: sotaloL 80 mg Route: PO; tp1 13:25 Follow up: Response: Cardiac rhythm is unchanged tp1 12:07 Drug: Rocephin (cefTRIAXone) 1 grams Route: IV; Rate: calculated rate; Site: right tp1 antecubital; 12:33 Follow up: Response: No adverse reaction; IV Status: Completed infusion; IV Intake: tp1 100ml Medication: 13:54 VIS not applicable for this client. vg1 Intake: 12:10 IV: 500ml; Total: 500ml. tp1 12:33 IV: 100ml; Total: 600ml. tp1 Outcome: 12:05 Decision to Hospitalize by Provider. cp 14:34 Admitted to ER Hold. Please see [facility] for further documentation. tp1 14:34 Condition: good 14:34 Instructed on the need for admit. 18:12 Patient left the ED. tp1 Signatures: Dispatcher [employer] EDMS Pooja Ferrera Corey, PA PA cp Garcia, Victoria, RN RN vg1 Laura Goldsmith RN RN tp1 Corrections: (The following items were deleted from the chart) 10:48 09:09 Pain: Complains of pain in left lower quadrant, back, and groin Pain currently is tp1 5 out of 10 on a pain scale. Pain began today tp1 10:49 10:22 Reassessment: Patient appears in no apparent distress at this time. Patient tp1 and/or family updated on plan of care and expected duration. Pain level reassessed. Patient is alert, oriented x 3, equal unlabored respirations, skin warm/dry/pink. continuing to CO ABD and suprapubic pain. at bedside. tp1 10:49 10:22 Reassessment: Patient appears in no apparent distress at this time. Patient tp1 and/or family updated on plan of care and expected duration. Pain level reassessed. Patient is alert, oriented x 3, equal unlabored respirations, skin warm/dry/pink. continues to CO Hip pain. at bedside. tp1
--- NOTE | 2022-05-06 12:05 | EDPHYS ---
Physician Documentation [facility] Name: Antonio Castillo Jr Age: 81 yrs Sex: Male : 1940 Arrival Date: 05/06/2022 Time: 09:03 Bed 6 Private MD: ED Physician Chuck Nix HPI: 05/06 09:15 This 81 yrs old Male presents to ER via EMS with complaints of Abdominal Pain, Back cp Pain. 09:15 The patient presents with abdominal pain in the upper abdomen. cp 09:15 Onset: The symptoms/episode began/occurred gradually, and became worse today. cp 09:15 Associated signs and symptoms: Pertinent positives: low back pain, Pertinent negatives: cp blood in stools, chest pain, constipation, diarrhea, fever, shortness of breath, testicular pain. Historical: - Allergies: 09:10 No Known Allergies; vg1 - Home Meds: 09:33 atorvastatin 20 mg Oral tab 1 tab once daily [Active]; finasteride 5 mg Oral tab 1 tab vg1 once daily [Active]; sotalol 120 mg Oral tab 1 tab 2 times per day [Active]; tamsulosin 0.4 mg Oral cp24 1 cap once daily [Active]; paroxetine HCl 10 mg oral tab 1 tab once daily [Active]; olmesartan oral [Active]; Linzess 145 mcg oral cap 1 cap once daily [Active]; Prednisone Oral [Active]; abiraterone oral [Active]; Lupon Injection [Active]; Xgeva subcutaneous [Active]; - PMHx: 09:10 Atrial Fib; Bladder cancer; cardioversion; Hypertension; sebaceous cyst removal; vg1 Prostate Cancer; - PSHx: 09:33 Stented artery; vg1 - Immunization history:: Client reports receiving the 2nd dose of the Covid vaccine. - Social history:: Smoking status: Patient denies any tobacco usage or history of. ROS: 09:20 Constitutional: Negative for body aches, chills, fever, poor PO intake. cp 09:20 Cardiovascular: Negative for chest pain, edema. cp 09:20 Respiratory: Negative for cough, shortness of breath, wheezing. 09:20 Abdomen/GI: Positive for abdominal pain, Negative for vomiting, diarrhea, constipation, cp black/tarry stool, rectal bleeding. 09:20 Eyes: Negative for injury, pain, redness, and discharge. cp 09:20 ENT: Negative for drainage from ear(s), ear pain, sore throat, difficulty swallowing, difficulty handling secretions. 09:20 Back: Positive for pain at rest, pain with movement, of the low back. 09:20 : Negative for urinary symptoms, testicular pain 09:20 Skin: Negative for cellulitis, rash. 09:20 Neuro: Positive for weakness, Negative for altered mental status, dizziness, headache, numbness, syncope. 09:20 All other systems are negative. Exam: 09:33 ECG was reviewed by the Attending Physician. cp 11:38 ECG was reviewed by the Attending Physician. cp Vital Signs: 08:59 BP 108 / 58; Pulse 103; Resp 17; Temp 100.2(O); Pulse Ox 97% on R/A; Weight 97.52 kg; vg1 Height 6 ft. 0 in. (182.88 cm); Pain 5/10; 09:30 BP 88 / 64 RA Supine (man/); tp1 09:31 BP 112 / 62 LA Supine (man/); tp1 10:46 BP 106 / 58 LA Supine (man/); Pulse 103; Resp 24; Pulse Ox 100% on R/A; tp1 11:29 Temp 99.3(O); vg1 11:49 BP 119 / 68 LA Sitting (man/); Pulse 144; Resp 23; Pulse Ox 99% on R/A; tp1 08:59 Body Mass Index 29.16 (97.52 kg, 182.88 cm) vg1 MDM: 09:21 Patient medically screened. 05/06 09:09 Order name: Basic Metabolic Panel; Complete Time: 10:53 cp 05/06 10:54 Interpretation: Normal except: NA 128; CL 97; GLUC 120; BUN 31; GFR 67; CA 6.4. 05/06 09:09 Order name: CBC with Diff; Complete Time: 09:57 cp 05/06 09:58 Interpretation: Normal except: RBC 3.56; HGB 11.3; HCT 32.8; MCV 92.1; PLT 234; MPV cp 7.2; CATHY% 83.7; LYM% 6.5; NEUT A 9.0. 05/06 09:09 Order name: LFT's; Complete Time: 10:53 05/06 10:54 Interpretation: Normal except: AST 110; ALK 266; BILIT 1.6; BILID 1.1; TP 5.5; ALB 1.9; cp GLOB 3.6; A/G 0.5. 05/06 09:09 Order name: Magnesium; Complete Time: 10:53 05/06 09:09 Order name: NT PRO-BNP; Complete Time: 10:53 05/06 10:55 Interpretation: Abnormal: NT PRO-BNP 2752. 05/06 09:09 Order name: PT-INR; Complete Time: 09:57 05/06 09:09 Order name: Troponin HS; Complete Time: 10:53 05/06 10:55 Interpretation: Reviewed. 05/06 09:09 Order name: Lipase; Complete Time: 10:53 05/06 09:09 Order name: Urine Microscopic Only; Complete Time: 10:53 05/06 10:54 Interpretation: Normal except: URBC 5-10; UBACT 20-50. 05/06 09:22 Order name: Lactate; Complete Time: 09:59 05/06 09:59 Interpretation: Within normal limits: LAC 1.6. 05/06 09:22 Order name: Blood Culture Adult (2) 05/06 09:22 Order name: Procalcitonin; Complete Time: 10:53 05/06 10:19 Order name: Urine Dipstick-Ancillary; Complete Time: 10:53 [facility] 05/06 10:55 Interpretation: Normal except: UBLD Trace-intact; UPROT 1+. 05/06 10:47 Order name: Urine Culture [facility] 05/06 09:09 Order name: XRAY Chest (1 view); Complete Time: 11:34 05/06 09:09 Order name: EKG; Complete Time: 09:10 05/06 09:09 Order name: Cardiac monitoring; Complete Time: 09:28 05/06 09:09 Order name: EKG - Nurse/Tech; Complete Time: 09:28 05/06 09:10 Order name: CT Abd/Pelvis - IV Contrast Only; Complete Time: 10:53 05/06 10:57 Interpretation: Report reviewed. 05/06 12:05 Order name: SARS RAPID 05/06 12:11 Order name: Basic Metabolic Panel EDMN 05/06 12:11 Order name: Basic Metabolic Panel EDMS 05/06 12:11 Order name: CBC with Automated Diff EDMS 05/06 12:11 Order name: CBC with Automated Diff EDMS 05/06 12:34 Order name: Diet Regular; Complete Time: 12:35 cp 05/06 09:09 Order name: IV Saline Lock; Complete Time: 09:47 cp 05/06 09:09 Order name: Labs collected and sent; Complete Time: 09:47 cp 05/06 09:09 Order name: O2 Per Protocol; Complete Time: 09:14 cp 05/06 09:09 Order name: O2 Sat Monitoring; Complete Time: 09:13 cp 05/06 09:09 Order name: Urine Dipstick-Ancillary (obtain specimen); Complete Time: 10:35 cp 05/06 09:57 Order name: Taylor; Complete Time: 10:35 cp EC:33 Rate is 109 beats/min. Rhythm is regular. LA interval is normal. QRS interval is cp normal. QT interval is normal. T waves are Inverted in lead aVR. Interpreted by me. Reviewed by me. 11:38 Rate is 127 beats/min. Rhythm is irregular. QRS interval is normal. QT interval is cp normal. T waves are Inverted in lead aVR. Interpreted by me. Reviewed by me. Administered Medications: 09:21 Drug: fentaNYL (PF) 25 mcg Route: IVP; Site: right antecubital; tp1 09:50 Follow up: Response: Pain is unchanged, physician notified tp1 09:40 Drug: NS 0.9% 500 ml Route: IV; Rate: bolus; Site: right antecubital; tp1 12:10 Follow up: Response: Blood pressure is unchanged; IV Status: Completed infusion; IV tp1 Intake: 500ml 11:28 Drug: fentaNYL (PF) 25 mcg Route: IVP; Site: right antecubital; tp1 11:50 Follow up: Response: Pain is unchanged, physician notified tp1 11:44 Drug: sotaloL 80 mg Route: PO; tp1 13:25 Follow up: Response: Cardiac rhythm is unchanged tp1 12:07 Drug: Rocephin (cefTRIAXone) 1 grams Route: IV; Rate: calculated rate; Site: right tp1 antecubital; 12:33 Follow up: Response: No adverse reaction; IV Status: Completed infusion; IV Intake: tp1 100ml Disposition: 18:20 Co-signature as Attending Physician, Chuck Nix MD. rn Disposition Summary: 05/06/22 12:05 Hospitalization Ordered Hospitalization Status: Inpatient Admission cp Provider: Abdiel Barrett cp Condition: Fair cp Problem: new cp Symptoms: have improved cp Bed/Room Type: Standard cp Location: Telemetry/MedSurg (Inpatient)(05/06/22 17:24) dw Room Assignment: [facility](05/06/22 17:24) Diagnosis - Volume depletion, unspecified cp - Chronic atrial fibrillation cp - Abdominal pain, unspecified cp Forms: - Medication Reconciliation Form cp - SBAR form cp Addendum: 05/08/2022 10:00 Addendum: EXAM: Constitutional: The patient appears in no acute distress, alert, awake, c p non diaphoretic, nontoxic, well developed, well nourished, uncomfortable. Head/Face: Normocephalic, atraumatic. Eyes: Periorbital structures: Appear normal,Conjunctiva: Normal, no exudate, no injection, Sclera: No appreciated abnormality, Lids and lashes: Appear normal, bilaterally. ENT: External ears: are unremarkable, Nose: Is normal, Mouth: Lips: dry, Oral mucosa: moist, Posterior pharynx: Airway: no evidence of obstruction, patent. Neck: ROM/movement: Is normal, is supple, without pain, no range of motions limitations. Chest/axilla: Inspection: normal. Cardiovascular: Rate: tachycardic, Rhythm: irregular, Edema: Is not appreciated, JVD: Is not appreciated. Respiratory: The patient does not display signs of respiratory distress, Respirations: Normal, no use of accessory muscles, no retractions, labored breathing is not present, Breath sounds: Are clear throughout, no decreased breath sounds, no stridor, no wheezing. Abdomen/GI: Inspection: Abdomen appears normal, Bowel sounds: Active all quadrants, Palpation: Soft in all quadrants, moderate abdominal tenderness in all quadrants, rebound tenderness is not appreciated, involuntary guarding is not appreciated. Back: Pain and tenderness to mid and low back. No active range of motion restriction. Skin: cellulitis is not appreciated, no rash present. Neuro: Orientation: to person, place \T\ time. Mentation: is normal, Motor: moves all fours, general weakness with no focal deficits. 10:10 Addendum: PLAN: We will admit patient for continued treatment of tachycardia, abdominal c p and back pain. Dr. Barrett contacted and will admit patient.. Signatures: Dispatcher [employer] Tamiko Arechiga, RN RN dw Chuck Nix MD MD rn Franky Carpenter PA PA cp Leal, Jahala, RN RN jl7 Rain Hankins RN RN 1 Laura Goldsmith RN RN tp1 Corrections: (The following items were deleted from the chart) 05/06 15:59 12:05 Telemetry/MedSurg (Inpatient) cp jl7 15:59 12:05 cp jl7 17:24 15:59 [facility] ER HOLD jl7 dw 17:24 15:59 ERHOLD- jl7 dw
[2022-05-06] MEDS ORDERED: ONDANSETRON 4 MG/2 ML VIAL IV PRN (12:08)
[2022-05-06] MEDS ORDERED: CEFTRIAXONE 1000 MG/VIAL ONE (12:10)
[2022-05-06] MEDS ORDERED: NA CHLORIDE 0.9% 100 ML ONE (12:10)
[2022-05-06 12:55] LABS: SARS-CoV-2 Antigen Rapid Res Negative (Negative)
[2022-05-06] MEDS ORDERED: D5 0.45 NS 1,000 ML IV SCH (13:00)
[2022-05-06] MEDS ORDERED: D5 0.45 NS 1,000 ML IV ONE (13:38)
[2022-05-06 17:52] VITALS: BMI 29.0
[2022-05-06] MEDS ORDERED: ONDANSETRON 4 MG/2 ML VIAL ONE (18:14)
[2022-05-06] MEDS: HYDROMORPHONE HCL 1 MG/ML INJ IV PRN (20:39)
[2022-05-06] MEDS: D5 0.45 NS 1,000 ML IV SCH (20:40)
[2022-05-06] MEDS ORDERED: SOTALOL HCL 120 MG PO SCH (21:00)
--- NOTE | 2022-05-06 21:00 | P.HP ---
Certification for Inpatient Patient admitted to: Observation With expected LOS: <2 Midnights Practitioner: I am a practitioner with admitting privileges, knowledge of patient current condition, hospital course, and medical plan of care. Services: Services provided to patient in accordance with Admission requirements found in Title 42 Section 412.3 of the Code of Federal Regulations Patient History Date of Service: 05/06/22 Reason for admission: PAIN, WEAKNESS, CAN'T WALK. History of Present Illness: MR. 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 HE HAS SEVERE PAIN IN BACK AND IS NOT ABLE TO WALK ANY LONGER. HE AND ARE ASKING FOR HOSPICE. HE WILL DO MRI I ADVISE TO FIND IF THERE IS SIGNIFICANT SPINAL CORD COMPROMISE . HE AGREES. IT WAS TO BE DONE TONIGHT BUT SOMEHOW POSTPONED MRI DEPT MUST BE BUSY. Allergies No Known Drug Allergies Allergy (Verified 04/25/22 12:58) Unknown Home medications list reviewed: Yes Home Medications: Finasteride [Proscar*] 1 tab PO DAILY 06/22/20 Olmesartan Medoxomil [Benicar] 1 tab PO DAILY 06/22/20 Sotalol HCl [Sotalol] 1 tab PO BID 06/22/20 Tamsulosin [Flomax*] 1 cap PO DAILY 06/22/20 Cholecalciferol (Vitamin D3) [Vitamin D3] 3,000 mg PO DAILY 05/04/21 PARoxetine HCL [Paxil*] 10 mg PO DAILY 05/04/21 Atorvastatin Calcium [Lipitor] 20 mg PO BEDTIME 04/25/22 predniSONE [Deltasone] 10 mg PO DAILY 04/25/22 Calcium Carbonate [Calcium] 1,200 mg PO DAILY 05/06/22 Docusate/Senna [Senokot-S*] 100 mg PO DAILY 05/06/22 Linaclotide [Linzess] 145 mcg PO DAILY 05/06/22 - Past Medical/Surgical History Has patient received pneumonia vaccine in the past: Yes Diabetic: No -: cardiac cath with stents 06/27 -: BPH -: Afib -: HTN -: ablation jun 2007 -: tonsillectomy -: lithotripsy -: Stent - Family History Father -: Heart disease, Cancer Notes: sibling had breast cancer - Social History Smoking Status: Never smoker Alcohol use: No CD- Drugs: No Caffeine use: No Place of Residence: Home Review of Systems 10-point ROS is otherwise unremarkable General: Weakness Musculoskeletal: As per HPI Physical Examination - Vital Signs Temperature: 99.3 F Blood Pressure: 119/68 Pulse: 144 Respirations: 18 Pulse Ox (%): 98 - Physical Exam General: Oriented x3, Moderate distress HEENT: Atraumatic, PERRLA, Mucous membr. moist/pink, EOMI, Sclerae nonicteric Neck: Supple, 2+ carotid pulse no bruit, No LAD, Without JVD or thyroid abnormality Respiratory: Clear to auscultation bilaterally, Normal air movement Cardiovascular: Regular rate/rhythm, Normal S1 S2 Gastrointestinal: Normal bowel sounds, No tenderness Musculoskeletal: No tenderness Integumentary: No rashes Neurological: Abnormal strength (LOWER LIMBS 4/5. 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 IF SO MAY NEED SHORT TERM RADIATION. MRI PENDING. THEY WANT HOSPICE. PAIN CONTROL WITH DILAUDID. 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
[2022-05-07] MEDS: HYDROMORPHONE HCL 1 MG/ML INJ IV PRN ×5 (01:33→21:20)
[2022-05-07 03:41] LABS: Absolute Lymphocytes (CBC) 0.6 K/uL (0.7-4.9); Hematocrit 28.9 % (39.6-49.0); Lymphocytes % 5.7 % (15.3-44.8); MCV 93.2 fL (80-100); MPV 7.4 fL (7.6-11.3)
[2022-05-07 04:28] LABS: Potassium 4.4 mmol/L (3.5-5.1)
[2022-05-07] MEDS: D5 0.45 NS 1,000 ML IV SCH ×3 (05:40→21:32)
--- NOTE | 2022-05-07 08:15 | EKG ---
Test Date: 2022-05-06 Test Time: 11:36:07 Glass Installer: TP MEASUREMENT RESULTS: Intervals: Rate: 127 FL: QRSD: 74 QT: 310 QTc: 450 [place]: P: FL: QRS: 50 T: 61 INTERPRETIVE STATEMENTS: Atrial fibrillation with rapid ventricular response with premature ventricular or aberrantly conducted complexes Abnormal ECG Compared to ECG 05/06/2022 09:27:49 Ventricular premature complex(es) now present Sinus tachycardia no longer present Atrial premature complex(es) no longer present Electronically Signed On 05-07-22 08:12:11 CDT by Sandor Gan
--- NOTE | 2022-05-07 08:16 | EKG ---
Test Date: 2022-05-06 Test Time: 09:27:49 Box Attacher: ADRIANA MEASUREMENT RESULTS: Intervals: Rate: 109 LA: 146 QRSD: 70 QT: 372 QTc: 500 [place]: P: 53 LA: 146 QRS: 58 T: 48 INTERPRETIVE STATEMENTS: Sinus tachycardia with premature supraventricular complexes Otherwise normal ECG Compared to ECG 01/04/2022 10:50:26 Atrial premature complex(es) now present Sinus rhythm no longer present Electronically Signed On 05-07-22 08:12:29 CDT by Sandor Gan
--- NOTE | 2022-05-07 08:40 | RAD REPORT ---
EXAM DESCRIPTION: MRI - Lumbar Spine Wo Con - 05/07/2022 8:13 am CLINICAL HISTORY: Lower back pain. Bladder and colon cancer. Bony metastatic disease COMPARISON: May 06, 2022 cat scan TECHNIQUE: Sagittal T1, T2 and STIR weighted sequences were obtained. Axial T1 and T2 sequences were obtained through the lumbar disc levels. FINDINGS: Slight posterior subluxation L1 on L2. Small right posterolateral disc herniation. Moderat e narrowing of the right neural foramina Disc bulge, ligamentum flavum facet hypertrophy L2-3. Small right lateral disc herniation. Mild narro wing of the thecal sac. Moderate narrowing of the right neural foramina Disc bulge, ligamentum flavum facet hypertrophy L3-4. Thecal sac measures 6 millimeters. Moderate to marked narrowing left and moderate narrowing the right neural foramina Small to moderate central disc herniation L4-5. Facet hypertrophy. Mild anterior subluxation L5 on S1. Facet hypertrophy. Moderate broad-based disc herniation. The thec al sac measures 5.5 millimeters. Moderate narrowing of the neural foramina. Spondylolysis L5 Sclerotic metastases involve all of the lumbar vertebra as well as the visualize sacrum. It is most m arked L4. No obvious spinal canal lesions seen although it can be missed as IV contrast was not administered. 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 Moderate central spinal stenosis L3-4 Moderate to marked central spinal stenosis L5-S1
[2022-05-07] MEDS ORDERED: SOTALOL HCL 120 MG PO SCH (09:00)
[2022-05-07] MEDS ORDERED: Linaclotide [Linzess] 145 MCG Capsule PO SCH (09:00)
[2022-05-07] MEDS: PARoxetine HCL 10 MG TAB PO SCH (09:41)
[2022-05-07] MEDS: TAMSULOSIN 0.4 MG SR CAP PO SCH (09:41)
[2022-05-07] MEDS: FINASTERIDE 5 MG TAB PO SCH (09:41)
[2022-05-07] MEDS: Linaclotide [Linzess] 145 MCG Capsule PO SCH (09:42)
[2022-05-07] MEDS: predniSONE 10 MG TAB PO SCH (09:42)
[2022-05-07] MEDS: DOCUSATE NA/SENNA CONC 1 TAB PO SCH (09:42)
[2022-05-07] MEDS: CIPROFLOXACIN HCL 250 MG TAB PO SCH ×2 (13:00→21:20)
[2022-05-07] MEDS: LIDOCAINE 4% PATCH TOP SCH (15:59)
[2022-05-07] MEDS ORDERED: ENOXAPARIN 40 MG/0.4 ML SQ SCH (17:00)
[2022-05-07] MEDS ORDERED: LIDOCAINE JELLY 2% 5 ML SYRINGE TOP ONE (19:16)
--- NOTE | 2022-05-07 20:56 | P.PN ---
Subjective Date of Service: 05/07/22 Chief Complaint: BACK PAIN, WEAK, NOT ABLE TOWALK. Subjective: Worsening MR. 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 HE HAS SEVERE BACK PAIN AND WANTS TO BE ON HOSPICE NOW WITH FAILED CHEMO. Physical Examination - Vital Signs Temperature: 97.7 F Blood Pressure: 103/57 Pulse: 79 Respirations: 14 Pulse Ox (%): 96 - Physical Exam General: Oriented x3, Moderate distress HEENT: Atraumatic, PERRLA, EOMI Neck: Supple, JVD not distended Respiratory: Clear to auscultation bilaterally, Normal air movement Cardiovascular: Regular rate/rhythm, Normal S1 S2 Gastrointestinal: Normal bowel sounds, No tenderness Musculoskeletal: No tenderness Integumentary: No rashes Neurological: Normal speech, Normal tone, Normal affect Lymphatics: No axilla or inguinal lymphadenopathy - Studies Medications List Reviewed: Yes Assessment And Plan - Current Problems (Diagnosis) (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 IF SO MAY NEED SHORT TERM RADIATION. MRI PENDING. THEY WANT HOSPICE. PAIN CONTROL WITH [facility]. PATIENT ASKED TO MEET HOSPICE. 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 THEY WANTED TO MEET NURSE AND DISCUSS. FORTUNATELY NURSE FOR [facility] WAS ON THE FLOOR AND WAS ABLE TO TALK TO THEM. THEY ARE TRYING TO DECIDE ABOUT [facility] OR [facility] AT THIS POINT. HE ALSO WANTS DNR STATUS THAT I ADVISED. 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
[2022-05-07] MEDS: SOTALOL HCL 80 MG TAB PO SCH (21:20)
[2022-05-08] MEDS: HYDROMORPHONE HCL 1 MG/ML INJ IV PRN ×3 (01:06→12:29)
[2022-05-08] MEDS: D5 0.45 NS 1,000 ML IV SCH ×2 (05:45→12:37)
[2022-05-08] MEDS: TAMSULOSIN 0.4 MG SR CAP PO SCH (08:13)
[2022-05-08] MEDS: LIDOCAINE 4% PATCH TOP SCH (08:13)
[2022-05-08] MEDS: SOTALOL HCL 80 MG TAB PO SCH (08:14)
[2022-05-08] MEDS: DOCUSATE NA/SENNA CONC 1 TAB PO SCH (08:14)
[2022-05-08] MEDS: predniSONE 10 MG TAB PO SCH (08:14)
[2022-05-08] MEDS: Linaclotide [Linzess] 145 MCG Capsule PO SCH (08:15)
[2022-05-08] MEDS: CIPROFLOXACIN HCL 250 MG TAB PO SCH (08:15)
[2022-05-08] MEDS: PARoxetine HCL 10 MG TAB PO SCH (08:15)
[2022-05-08] MEDS: FINASTERIDE 5 MG TAB PO SCH (08:15)
[2022-05-08 09:48] VITALS: O2SAT 97
[2022-05-08] MEDS ORDERED: HYDROMORPHONE HCL 1 MG/ML INJ IV ONE (11:30)
[2022-05-08 12:12] VITALS: TEMP 98.6
[2022-05-08 12:48] VITALS: BP 103/54
[2022-05-08] MEDS ORDERED: LIDOCAINE 4% PATCH TOP SCH (15:12)
--- NOTE | 2022-05-09 21:28 | P.DS ---
Admission Date: 05/06/22 Discharge Date: 05/09/22 Disposition: HOSPICE-HOME Discharge Condition: SERIOUS Reason for Admission: BACK PAIN, WEAK, NOT ABLE TOWALK. 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 HE HAS SEVERE PAIN IN BACK AND IS NOT ABLE TO WALK ANY LONGER. HE AND ARE ASKING FOR HOSPICE. HE WILL DO MRI I ADVISE TO FIND IF THERE IS SIGNIFICANT SPINAL CORD COMPROMISE . HE AGREES. IT WAS TO BE DONE TONIGHT BUT SOMEHOW POSTPONED MRI DEPT MUST BE BUSY. Hospital Course: MR GRAVES HAS ADVANCED STAGE 4 PROSTAE CANCER WITH SEVERE PAIN IN BACK AND DEBILITY. HE HAS DECIDED TO BE ON HOSPICE. HE IS ACCEPTED TO BE ON HOSPICE BY MEDICARE AND TRANSFERED HOME BY AMBULANCE. Vital Signs/Physical Exam: Temp Pulse Resp BP Pulse Ox 98.6 F 91 H 18 103/54 L 93 05/08/22 12:00 05/08/22 12:48 05/08/22 12:29 05/08/22 12:48 05/08/22 12:29 Laboratory Data at Discharge: WBC 9.80 K/uL (4.3-10.9) 05/07/22 02:49 Hgb 9.9 g/dL (13.6-17.9) L 05/07/22 02:49 Hct 28.9 % (39.6-49.0) L 05/07/22 02:49 Plt Count 225 K/uL (152-406) 05/07/22 02:49 PT 15.7 SECONDS (9.2-12.8) H 05/06/22 09:15 INR 1.33 05/06/22 09:15 Sodium 129 mmol/L (136-145) L 05/07/22 02:49 Potassium 4.4 mmol/L (3.5-5.1) 05/07/22 02:49 BUN 39 mg/dL (7-18) H 05/07/22 02:49 Creatinine 1.36 mg/dL (0.55-1.3) H 05/07/22 02:49 Glucose 156 mg/dL (74-106) H 05/07/22 02:49 Magnesium 2.1 mg/dL (1.8-2.4) 05/06/22 09:15 Total Bilirubin 1.6 mg/dL (0.2-1.0) H 05/06/22 09:15 AST 110 U/L (15-37) H 05/06/22 09:15 ALT 57 U/L (12-78) 05/06/22 09:15 Alkaline Phosphatase 266 U/L (45-117) H 05/06/22 09:15 Lipase 63 U/L (73-393) L 05/06/22 09:15 Home Medications: Finasteride [Proscar*] 1 tab PO DAILY 06/22/20 Sotalol HCl [Sotalol] 1 tab PO BID 06/22/20 Tamsulosin [Flomax*] 1 cap PO DAILY 06/22/20 Cholecalciferol (Vitamin D3) [Vitamin D3] 3,000 mg PO DAILY 05/04/21 PARoxetine HCL [Paxil*] 10 mg PO DAILY 05/04/21 predniSONE [Deltasone*] 10 mg PO DAILY 04/25/22 Docusate/Senna [Senokot-S*] 100 mg PO DAILY 05/06/22 Linaclotide [Linzess] 145 mcg PO DAILY 05/06/22 Ciprofloxacin HCl [Cipro 250 MG Tablet*] 250 mg PO BID #10 tab 05/08/22 New Medications: Ciprofloxacin HCl [Cipro 250 MG Tablet*] 250 mg PO BID #10 tab Followup: Abdiel Barrett MD [Primary Care Provider] - 1-2 Weeks (call to schedule an appointment)
== END 2022-05-08 13:25 | disposition hospice, home (50) | DRG 552 ==
LOC: ER 09:00 → ERHOLD 12:10 → 4TH 18:04
PROVIDERS: ADMIT Internal Medicine; ATTEND Internal Medicine
DX: M54.9 Dorsalgia, unspecified (principal); I48.20 Chronic atrial fibrillation, unspecified; C79.51 Secondary malignant neoplasm of bone; C78.7 Secondary malignant neoplasm of liver and intrahepatic bile duct; I10 Essential (primary) hypertension; E86.9 Volume depletion, unspecified; N40.0 Benign prostatic hyperplasia without lower urinary tract symptoms; C61 Malignant neoplasm of prostate; R53.81 Other malaise; Z51.5 Encounter for palliative care; Z95.5 Presence of coronary angioplasty implant and graft; Z85.51 Personal history of malignant neoplasm of bladder; Z85.46 Personal history of malignant neoplasm of prostate; Z79.52 Long term (current) use of systemic steroids; Z79.899 Other long term (current) drug therapy; Z20.822 Contact with and (suspected) exposure to COVID-19
CPT/HCPCS: 36415; 51702; 71045; 72148; 74177; 80048; 80076; 81003; 81015; 83605; 83690; 83735; 83880; 84145; 84484; 85025; 85610; 87040; 87086; 87088; 87811; 93005; 96361; 96365; 96375; 99285; J1170; J1650; J2001; J2405; J3010; J7040; J7512; J7799; Q9967